=== PATIENT | male | born 1960 | race Caucasian/White ===

== ENCOUNTER 2021-04-15 04:12 | Inpatient (IN) | payer OTHER ==
[~2021-04-15] VITALS: Ht 180.3 cm; Wt 77.0 kg
[2021-04-15] MEDS ORDERED: FLOMAX0.4 MG PO (04:32)
[2021-04-15] MEDS ORDERED: CHANTIX1 MG PO (04:32)
[2021-04-15] MEDS ORDERED: PRINIVIL20 MG PO (04:33)
[2021-04-15] MEDS ORDERED: PLAVIX75 MG PO (04:33)
[2021-04-15] MEDS ORDERED: LIPITOR40 MG (04:34)
[2021-04-15] MEDS ORDERED: LIPITOR40 MG PO (04:34)
[2021-04-15] MEDS ORDERED: ANDRODERM1 EAC3 TD (04:35)
[2021-04-15] MEDS ORDERED: ADULT ASPIRIN R81 MG PO (08:55)
--- NOTE | 2021-04-15 09:25 | NUR ---
PATIENT ADMITTED TO ROOM [address]VAREZ. PATIENT POTENTIALLY GOING TO SURGERY BUT WILL GET IVF AND IV ABX FOR NOW. DR. ALVAREZ IN TO SEE PATIENT, AND MD STATES PATIENT CAN HAVE CLEAR LIQUIDS. PT GIVEN WATER. PT IS VERY PAINFUL BUT STATES THE DILAUDID IS HELPING. URINAL GIVEN TO PATIENT AND ORIENTED TO ROOM. PT ASKED TO USE CALL LIGHT. SCDs ON. PT STATES HE IS TIRED AND WANTING TO REST. REPORT GIVEN TO CEE ARIAS WHO IS CARING FOR PATIENT.
--- NOTE | 2021-04-15 10:21 | NUR ---
Dilaudid 0.5mg IVP admin for reports of 8/10 right lower quadrant pain.
[2021-04-15] MEDS ORDERED: TESTOSTERO200 MG/1 M IM (11:51)
--- NOTE | 2021-04-15 12:47 | NUR ---
MED REC COMPLETE
--- NOTE | 2021-04-15 13:00 | NUR ---
Admin dilaudid 0.5mg ivp for reports of 8/10 abdominal pain.
--- NOTE | 2021-04-15 13:12 | NUR ---
Called Dr. Blanc, obtained order for nicotine patch 21mg and to start a clear liquid diet as tolerated.
--- NOTE | 2021-04-15 13:28 | NUR ---
Pt was in bed, stated it only hurt when he moved or breathed or laughed. Unfortunately, pt appears to be in good spirits, and chuckled several times during our conversation, after when he winced and touched his side. He indicated significant pain but was confident of goood outcome. His only regret was that he had eaten a light dinner last night and so was very hungry. We prayed together, and I exited the room.
--- NOTE | 2021-04-15 15:15 | NUR ---
Toradol 30mg IVP admin for reports of 810 ongoing abdominal pain.
--- NOTE | 2021-04-15 17:17 | NUR ---
Dilaudid 0.5mg IVP admin for 8/10 abdominal pain.
--- NOTE | 2021-04-15 17:44 | NUR ---
SPOKE WITH PATIENT IN ROOM. PATIENT LIVES IN [place] WITH Rohit VARELA. SHE CAN PROVIDE TRANSPORT AT DISCHARGE. HE USES NO DME. HE DENIES FINANCIAL CONCERNS FOR MEDS/FOOD/UTILITIES. HE IS SEMI-RETIRED. DRIVES. HAS PCP MEGAN MILES AT [facility]. HE KNOWS OF NO BARRIERS TO RETURNING HOME AT DISCHARGE. WILL FOLLOW NEEDED.
--- NOTE | 2021-04-15 18:52 | NUR ---
Patient reports he cannot take morphine as it makes him itch badly. Spoke with Dr. Blanc regarding this. New order obtained for dilaudid 2-4mg po q3hrs and to continue current IVP dilaudid order for 0.4-0.6mg q2hr. Instructed by Dr. Blanc to use po dilaudid first as tolerated before using it in IV form. Orders updated. Morphine discontinued at this time.
--- NOTE | 2021-04-15 19:38 | NUR ---
Dilaudid 2mg po admin for reports 7/10 abdominal pain.
--- NOTE | 2021-04-15 19:46 | NUR ---
BEDSIDE REPORT RECEIVED FROM CEE ARIAS. pt RESTING IN BED AWAKE WATCHING TV. COMPLAINS OF 5/10 ABDOMINAL PAIN. CEE ARIAS MEDICATING PATIENT AT THIS TIME. CALL LIGHT IN REACH. IVF INFUSING WNL.
--- NOTE | 2021-04-15 21:16 | NUR ---
pt SLEEPING, AWAKENS TO VOICE WHEN RN ENTERS ROOM. RATES PAIN 5-6/10 IN ABDOMEN. PO DILAUDID TITRATED TO MAX DOSE. BOWEL TONES ACTIVE X 4, ABD SOFT, TENDER RUQ WITH PALPATION. pt GUARDED. IV SITE FLUSHED WNL, IV ANTIBIOTIC INFUSING ORDERED. ASSESSMENT COMPLETE. pt PROVIDED WITH CLEAR ENSURE DRINK. NO ADDITIONAL REQUESTS. VSS. CALL LIGHT IN REACH.
--- NOTE | 2021-04-15 22:32 | NUR ---
CALL LIGHT ANSWERED. URINAL PROVIDED pt DROPPED IT NEXT TO BED. NO ADDITIONAL NEEDS. IVF INFUSING WNL.
--- NOTE | 2021-04-16 02:10 | NUR ---
CALL LIGHT ANSWERED. VSS. pt COMPLAINS OF 9/10 RIGHT ABDOMINAL PAIN. ABD TENDER TO PALPATION, SOFT, BOWEL TONES ACTIVE X 4. PRN PAIN MEDICATION ADMINISTERED. ASSESSMENT COMPLETE. IV ANTIBIOTIC INFUSING WNL. COFFEE AND ICE WATER PROVIDED. pt AMBULATED 3 LAPS IN HALLWAY INDEPENDENTLY. BACK IN BED, CALL LIGHT IN REACH.
--- NOTE | 2021-04-16 05:05 | NUR ---
CALL LIGHT ANSWERED. PRN PAIN MEDICATION ADMINISTERED FOR 6-03/23 REPORTED ABDOMINAL PAIN "IT'S NOT BAD IF I'M JUST SITTING HERE". pt AWAKE WATCHING NEWS. CLEAR ENSURE AND JELLO PROVIDED. NEW BAG IVF INFUSING WNL. VSS. CALL LIGHT IN REACH.
--- NOTE | 2021-04-16 07:11 | EKG ---
[facility] [address] [facility] [place], [place] [address] Signed Normal sinus rhythm Possible Anterior infarct , age undetermined Abnormal ECG No previous ECGs available Confirmed by WILBER TRAVIS MD ([id number]) on 04/16/2021 7:11:12 AM Electronically Signed By: WILBER TRAVIS MD 04/16/21710 PATIENT NAME: GLENN SAVAGE Electrocardiogram DATE OF : 60 PHYSICIAN: WILBER TRAVIS MD REPORT #: [id number] REPORT IS CONFIDENTIAL AND NOT TO BE RELEASED WITHOUT AUTHORIZATION
--- NOTE | 2021-04-16 07:24 | NUR ---
PT AWAKE AND INTERACTIVE AT TIME OF SHIFT EXCHANGE, RESTING IN BED. STATES HE IS STARTING TO GET PAINFUL AGAIN, ANTICIPATES MED WHEN PRN IS AVAILABLE.
--- NOTE | 2021-04-16 08:17 | NUR ---
PT AWAKE IN ROOM. PT INDEPENDENT IN ROOM, REFUSES WARM CLOTH AND BREAKFAST TRAY. WHITE BOARD UPDATED. CALL LIGHT WITHIN REACH. NO FURTHER NEEDS AT THIS TIME.
--- NOTE | 2021-04-16 09:33 | NUR ---
PT CONTINUES RESTING IN BED. REFUSES OFFERS OF CLEAR LIQUIDS C/O HUNGER. PT IS UPBEAT AND CHEERFUL BUT STATES BEING COOPED UP AND UNABLE TO EAT IS CAUSING HIM STRESS. PUZZLES AND DISTRACTIONS OFFERED.
--- NOTE | 2021-04-16 09:45 | NUR ---
THIS RN TO ROOM TO CHECK ON PT AND TAKE VITALS SIGNS. VITAL SIGNS STABLE. I/O'S RECORDED, PT VOIDING QUANTITY SUFFICIENT. PT REPORTS 5/10 PAIN WHICH WORSENS WITH COUGH UP TO 8/10. PT REPORTS HE HAS RECENTLY TAKEN PAIN MEDICATION. PT REPORTS FEELING INPATIENT WITH PLAN OF CARE. PT STATES HE IS PLANNING TO LEAVE IN 2 HOURS IF HE DOES NOT GET TO EAT. EDUCATION DONE WITH PT. PT VERBALIZES UNDERSTANDING OF PROS AND CONS TO PLAN OF CARE. PT DENIES ADDITIONAL REQUESTS OR COMPLAINTS. CALL LIGHT WITHIN REACH.
--- NOTE | 2021-04-16 11:15 | NUR ---
Spoke with Kip. He is upset and stating he wants his meds and he wants to eat. He states he hasn't eaten in [address] Blanc is in surgery and I will let the dry charge process attendant know. He states there is no need and then apologizes and states he is cranky. He also states the weigh and charge worker also knows he wants med and food. Denies other needs and plans on dc to home when cleared medically.
--- NOTE | 2021-04-16 12:05 | NUR ---
PT CONTINUES TO BE PAINFUL IN BETWEEN DILAUDID. HE AGREES THE PAIN MED IS EFFECTIVE, "IT JUST DOESN'T LAST LONG ENOUGH"
--- NOTE | 2021-04-16 15:30 | NUR ---
PT UP TO SHOWER AGREES HE FEELS MUCH BETTER WATCHING TV DOING SOMETHING ON HIS PHONE. DR ALVAREZ IN EARLIER IN THE DAY SPEAKS TO HIM ABOUT POSSIBLE DIAGNOSIS AND PLAN MOVING FORWARD. ALL QUESTIONS ANSWERED. DIVERTIC PAMPLET PROVIDED LATER DISCUSSION CONTINUED WITH A FEW Q&A PT VERBALIZES UNDERSTANDING
--- NOTE | 2021-04-16 16:34 | NUR ---
PT INDEPENDENT WITH SHOWER. NOW UP IN ROOM. CALL LIGHT WITHIN REACH. LINEN CHANGED. NO FURTHER NEEDS AT THIS TIME.
--- NOTE | 2021-04-16 19:35 | NUR ---
RECEIVED REPORT FROM DAY SHIFT RN. PATIENT IS RESTING IN BED WATCHING TV. PATIENT DENIES ANY FURTHER NEEDS. CALL LIGHT IN REACH.
--- NOTE | 2021-04-16 20:35 | NUR ---
PATIENT ASSESMENT COMPLETED. PATIENTS VITALS TAKEN AND RECORDED. INTAKE AND OUPUT RECORDED. IV INFUSING PER ORDER. PATIENTS EVENING MEDICATIONS GIVEN PER ORDER. PATIENT RATES PAIN AT A 3/10. PRN PAIN MEDICATION GIVEN PER ORDER. PATIENTS RLQ IS TENDER TO THE TOUCH. PATIENT DENIES ANY DISTENTION. PATIENT DENIES ANY NAUSEA. SCDS IN USE. PATIENT DENIES ANY FURTHER NEEDS. AT THIS TIME. CALL LIGHT IN REACH.
--- NOTE | 2021-04-16 23:49 | NUR ---
PATIENT GIVEN PRN PAIN MEDICATION FOR 3/10 PAIN IN HIS RLQ. PATIENT DENIES ANY FURTHER NEEDS. CALL LIGHT IN REACH.
--- NOTE | 2021-04-17 02:56 | NUR ---
PATIENTS SCHEDULED MEDICATION GIVEN PER ORDER. PATIENT RATES PAIN AT A 4/10. PATIENT GIVEN PRN PAIN MEDICATION PER ORDER. PATIENT DENIES ANY FURTHER NEEDS. CALL LIGHT IN REACH. PATIENTS IV PUMP IS BEEPING. PATIENTS IV FLUSHED AND IS PATENT. NO SIGNS OF INFILTRATION, NO REDNESS, AND NO PAIN NOTED WHEN IV FLUSHED.
--- NOTE | 2021-04-17 05:52 | NUR ---
VITALS TAKEN AND RECORDED. INTAKE AND OUPUT RECORDED. PATIENT REPORTS 6/10 PAIN IN HIS RLQ. PATIENT GIVEN PRN PAIN MEDICATION PER ORDER. PATIENT REPORTS PASSING GAS. PATIENT HAS ACTIVE BOWEL TONES. PATIENT DENIES ANY FURTHER NEEDS. CALL LIGHT IN REACH. LAB IN ROOM.
--- NOTE | 2021-04-17 07:02 | NUR ---
Report from Blanco Rodas RN.
--- NOTE | 2021-04-17 07:23 | NUR ---
Shift report recieved from CEE Kincaid, pt resting in bed safely w/ call light in reach. RR even and unlabored.
--- NOTE | 2021-04-17 07:43 | NUR ---
Ambulating in hallway at this time.
--- NOTE | 2021-04-17 07:45 | NUR ---
PT UP AND REPORTED THEY WERE GOING TO WALK AROUND. PT REFUSED WASHCLOTH AND STATED THEY WILL WASH FACE IN BATHROOM. WHITEBOARD UPDATED. PT AMBULATED 2 LAPS AROUND THE NURSES STATION. NO FURTHER NEEDS.
--- NOTE | 2021-04-17 08:00 | NUR ---
PT UP IN HALLWAY AMBULATING INDEPENDENTLY.
--- NOTE | 2021-04-17 08:30 | NUR ---
PT SITTING UP IN BED USING IS. PT C/O PAIN IN RLQ, PRN PAIN MEDS GIVEN PER PT REQUEST/PROVIDER ORDER. MORNING ASSESMENT COMPLETED AND SCHEDULED MEDS GIVEN PER PROVIDER ORDER. PT DENIES ANY OTHER NEEDS AT THIS TIME.
--- NOTE | 2021-04-17 10:20 | NUR ---
PROVIDER IN THE ROOM TO ASSES PT. PT SITTING UP IN BED SAFELY W/ CALL LIGHT IN ROOM. PT UPDATED ON PLAN OF CARE.
--- NOTE | 2021-04-17 11:30 | NUR ---
No change in plan for dc, possible discharge tomorrow per Dr. Blanc.
--- NOTE | 2021-04-17 11:41 | HP ---
[facility] [address], [place] [address] Signed ADMISSION DATE: 04/15/2021 REASON FOR ADMISSION: Probable right-sided inflammatory process of colon. HISTORY OF PRESENT ILLNESS: This 60-year-old white man lives in [place], though he gets most of his medical care in [place], [place]. His is not present, though she is present by phone during my evaluation. The patient presented to the emergency room at approximately 4:00 in the morning, complaining of progressive abdominal pain which was very severe on the right side. He had no real problems more than 24 hours ago, but his pain was maximal at approximately 11:00 p.m. and steadily worsening during ER evaluation. The patient has had some nausea and diarrhea and diaphoresis. He was markedly tender to examination by Dr. Fuentes, the emergency room physician. A CT scan was performed, which was anticipated to show appendicitis, but there was no evidence of appendicitis, but rather cecal wall thickening and pericolic fat stranding with an intramural fluid collection in the proximal ascending colon. There was associated mass effect in the lumen, but no colonic obstruction. Consideration was made. This may represent a diverticulitis problem on the right side. The appendix itself was normal. His past medical history does include a significant myocardial infarction in April of last year for which he underwent a single left coronary stent. He continues to take Plavix and aspirin on a daily basis. He does smoke one pack of cigarettes a day and he has for 30 years and he drinks beer nightly and just THC gummies. Since admission with IV fluids and parental pain medication, he has improved, though markedly uncomfortable on the right side of moving. REVIEW OF SYSTEMS: He denies any shortness of breath or chest pain. He has had no dysphagia. No dysuria. No hematemesis. No blood per rectum. PHYSICAL EXAMINATION: GENERAL: A bald-headed well-tanned white man with a pinto valadez. He does not look systemically toxic. Trachea is midline. CHEST: Clear. HEART: Regular without murmur. Electronically Signed By: RADHAMES ALVAREZ MD 04/17/21 1141 PATIENT NAME: GLENN SAVAGE HISTORY AND PHYSICAL DATE OF : 60 REPORT #: [id number] PHYSICIAN: RADHAMES ALVAREZ MD PCP: NO PRIMARY CARE PHYSICIAN REPORT IS CONFIDENTIAL AND NOT TO BE RELEASED WITHOUT AUTHORIZATION [facility] [address], [place] [address] Signed ABDOMEN: Nondistended. He does not have significant tenderness on the left side, but market tenderness on the right side. EXTREMITIES: Show no clubbing, cyanosis, or edema. LABORATORY STUDIES: Show a white count of 24.5, hematocrit 33.7, platelets 458,000. Band forms 3%. Chem profile shows a potassium of 5.2, sodium 131, bicarb 24, creatinine of 1.02, glucose 116. Lactic acid was not obtained. Magnesium 1.9, calcium 9.2. Liver enzymes are normal. Troponin was less than 0.01. Albumin 4.2. Lipase not obtained. COVID serology was negative. Urinalysis essentially normal. His CT scan report is as previously described. Chest x-ray looks entirely normal. CT scan is reviewed, which shows no evidence of hepatic abnormality per se. Right kidney is normal as is the spleen. Left kidney is normal as well. Gallbladder appears to be contracted. I do not see radiopaque gallstones. The right colon and cecum have an amorphous appearance. It is thickened. I am uncertain that this represents an intramural abscess and think it unlikely actually, but we will review this with the radiologist. I do not see right-sided diverticula otherwise. ASSESSMENT: The patient has an inflammatory process of the right colon, specifically the cecum and said to have normal appendix proper. He has been admitted, given intravenous fluids, IV antibiotic cefoxitin, and will have bowel rest for now. I reviewed the CT scan more fully with the radiologist. As regards to his prior myocardial infarction, he has no evidence of ischemic disease clinically nor chemically at this time. He will remain on his Plavix and aspirin for the time being. MD ALEJANDRA Hernandez/MODL /[id number] cc: Dr. Fuentes Copies: Electronically Signed By: RADHAMES ALVAREZ MD 04/17/21 1141 PATIENT NAME: GLENN SAVAGE HISTORY AND PHYSICAL DATE OF : 60 REPORT #: [id number] PHYSICIAN: RADHAMES ALVAREZ MD PCP: NO PRIMARY CARE PHYSICIAN REPORT IS CONFIDENTIAL AND NOT TO BE RELEASED WITHOUT AUTHORIZATION [address] [address] Signed ~ Electronically Signed By: RADHAMES ALVAREZ MD 04/17/21 1141 PATIENT NAME: AKIRAHIRENGLENN HISTORY AND PHYSICAL DATE OF : 60 REPORT #: [id number] PHYSICIAN: RADHAMES ALVAREZ MD PCP: NO PRIMARY CARE PHYSICIAN REPORT IS CONFIDENTIAL AND NOT TO BE RELEASED WITHOUT AUTHORIZATION
--- NOTE | 2021-04-17 12:03 | NUR ---
PATIENT REQUESTED TO SPEAK TO RD ABOUT WHAT TO EAT ON A LOW-FIBER DIET. SPOKE TO PATIENT THIS MORNING. PATIENT HAS RECEIVED INFORMATION ON DIVERTICULITIS. RD EXPLAINED WHY LOW-FIBER IS NEEDED FOR GUT HEALING FOR A FEW WEEKS. THEN, FIBER CAN BE INCREASED. WE DISCUSSED RECOMMENDED FOOD ITEMS/ NOT RECOMMENDED FOOD ITEMS AND PROVIDED AN EDUCATIONAL HANDOUT. ALSO PROVIDED SAMPLE MENUS. ALL QUESTIONS WERE ANSWERED BY THIS RD. PROVIDED MY NAME AND OFFICE NUMBER IN CASE FURTHER QUESTIONS ARISE.
--- NOTE | 2021-04-17 12:13 | NUR ---
PT SITTING UP IN BED EATING LUNCH. PT C/O 6/10 PAIN IN RLQ, PRN PAIN MEDS GIVEN PER PT REQUEST/PROVIDER ORDER. PT DENIES ANY OTHER NEEDS AT THIS TIME.
--- NOTE | 2021-04-17 14:00 | NUR ---
PT SITTING UP IN BED W/ CALL LIGHT IN REACH, WATCHING TV. PT STATES PAIN IS STARTING TO COME BACK AND WOULD LIKE PRN PAIN MEDS WHEN AVAILABLE.
--- NOTE | 2021-04-17 15:26 | NUR ---
PT C/O PAIN IN RLQ, PRN PAIN MEDS GIVEN PER PT REQUEST/PROVIDER ORDER.
--- NOTE | 2021-04-17 16:31 | NUR ---
PT SITTING UP IN BED WATCHING TV, W/ CALL LIGHT IN REACH. PT DENIES ANY NEEDS AT THIS TIME.
--- NOTE | 2021-04-17 18:22 | NUR ---
PT IND IN ROOM AND PAIN WELL CONTROLED W/ ORAL PAIN MEDS. PT NUTRITIONAL AND FLUID INTAKE WELL URINE OUTPUT SUFICIENT FOR SHIFT. PT ADVANCED TO LOW FIBER DIET TOLERATING WELL. NEW IV STARTED IN L AC AND OLD IV DC'd PER PT REQUEST. PT A+O x3 USES CALL LIGHT APPROPRIATELY.
--- NOTE | 2021-04-17 18:27 | NUR ---
PT AWAKE IN BED AND WATCHING TV. PT IS FRUSTRATED BY FREQUENCY OF VITALS. PT IS INDEPENDENT IN THE ROOM. URINAL EMPTIED. CALL LIGHT WITHIN REACH. NO FURTHER NEEDS AT THIS TIME.
--- NOTE | 2021-04-17 19:46 | NUR ---
RECEIVED REPORT FROM DAY SHIFT RN. PATIENT ASKED STAFF TO LEAVE HIS ROOM. STATING "I WILL CALL WHEN I WANT YOU". CALL LIGHT IN REACH ROOM VACATED PER PATIENT REQUEST.
--- NOTE | 2021-04-17 21:07 | NUR ---
PATIENT IS REFUSING CARE AT THIS TIME. CALL LIGHT IN REACH.
--- NOTE | 2021-04-17 22:11 | NUR ---
PATIENT ASSESMENT COMPLETED. PATIENT RATES PAIN IN HIS RLQ AT A 6/10. PATIENT GIVEN PRN PAIN MEDICATION PER ORDER. VITALS TAKEN AND RECORDED. INTAKE AND OUPUT RECORDED. PATIENT DENIES ANY NAUSEA. PATIENT DENIES ANY FURTHER NEEDS. SL AND IV FLUSHES WELL. CALL LIGHT IN REACH.
--- NOTE | 2021-04-17 23:34 | NUR ---
PATIENT CALLED AND REQUESTED PAIN MEDICATION FOR 5/10 IN HIS RLQ. PRN PAIN MEDICATION GIVEN PER ORDER. PATIENT DENIES ANY FURTHER NEEDS. CALL LIGHT IN REACH.
--- NOTE | 2021-04-18 01:15 | NUR ---
PATIENT CALLED AND REPORTED 4/10 ABD PAIN. PATIENT GIVEN PRN ABD PAIN PER ORDER. PATIENT DENIES ANY FURTHER NEEDS. CALL LIGHT IN REACH.
--- NOTE | 2021-04-18 03:52 | NUR ---
PATIENT IS RESTING IN BED WITH EYES CLOSED, RR 17. CALL LIGHT IN REACH.
--- NOTE | 2021-04-18 06:13 | NUR ---
PATIENTS VITALS TAKEN AND RECORDED. INTAKE AND OUPUT RECORDED. PATIENTS MORNING MEDICATIONS GIVEN PER ORDER. PATIENT EXPRESSED FRUSTRATION WITH SCHEDULED MEDICATION. EDUCATED PATIENT THAT HIS MEDICATION AT HOME CAN BE DIFFERENT THAT HERE. PATIENT CONTINUES TO BE FRUSTRATED. PATIENT RATES PAIN AT A 4/10. PRN PAIN MEDICATION GIVEN PER ORDER. PATIENT DENIES ANY FURTHER NEEDS. CALL LIGHT IN REACH.
--- NOTE | 2021-04-18 07:41 | NUR ---
Shift report received from CEE Kincaid. Pt sitting up in bed safely w/ call light in reach. Pt c/o nausea, PRN nausea meds given per pt request/provider order.
--- NOTE | 2021-04-18 09:05 | NUR ---
PT RESTING IN BED W/ CALL LIGHT IN REACH. PT C/O RLQ PAIN, PRN PAIN MEDS GIVEN PER PT REQUEST/PROVIDER ORDER. MORNING ASSESMENT COMPLETED AND SCHEDULED MEDS GIVEN PER PROVIDER ORDER.
--- NOTE | 2021-04-18 09:30 | NUR ---
patient sitting up in the bed, says he will shower later today. call light within reach. no further needs at this time.
--- NOTE | 2021-04-18 10:23 | NUR ---
PT REQUESTED TO SHOWER BUT WOULD LIKE TO WAIT UNTIL NOON TO DO SO.
--- NOTE | 2021-04-18 12:15 | NUR ---
PT C/O PAIN, PRN PAIN MEDS GIVEN PER PT REQUEST/PROVIDER ORDER. PT ASK TO HOLD OFF ON TAKING A SHOWER HE WOULD LIKE TO TAKE A NAP INSTEAD. PT TO CALL WHEN READY FOR SHOWER
--- NOTE | 2021-04-18 12:30 | NUR ---
Spoke with pt and he is planning on dc today. Wanting to go now, awaiting visit from from Dr. Blanc for dc.
[2021-04-18] MEDS ORDERED: CIPROFLOXACIN500 MG PO (13:58)
[2021-04-18] MEDS ORDERED: METRONIDAZOLE250 MG PO (13:58)
--- NOTE | 2021-04-18 14:07 | NUR ---
PT'S IV REMOVED AND PT SHOWERING, PROVIDER PUT IN DISCHARGE ORDERS
--- NOTE | 2021-04-22 08:22 | DS ---
[facility] [address], [place] [address] Signed ADMISSION DATE: 04/15/2021 DISCHARGE DATE: 04/18/2021 REASON FOR ADMISSION: Presumed cecal diverticulitis. HISTORY OF PRESENT ILLNESS: This 60-year-old white man lives in [place], [place], though he gets most of his care in [place], [place]. He presented to the emergency room at approximately 4 a.m. complaining of progressive lower abdominal pain, which was quite severe in the right lower abdomen. He had no significant pain at all 24 hours prior to admission, but this pain was maximal at approximately 11 p.m. and steadily worsening until his presentation to emergency room. He was markedly tender to examination by Dr. Fuentes, emergency room physician. A CT scan was performed, anticipating to show appendicitis, but there was no evidence of appendicitis, but rather a cecal wall thickening and pericolic fat stranding with intramural fluid collection possibly of the ascending colon and a mass effect in the lumen. Consideration was made for possible "mural abscess." PAST MEDICAL HISTORY: Does include history of myocardial infarction in April of 2020 with single left coronary artery stent. He continues on Plavix and aspirin on a daily basis. He does smoke one pack of cigarettes daily and has for 30 years and drinks beer nightly. He is admitted for further evaluation and care. PERTINENT PHYSICAL EXAMINATION: GENERAL: Showed a bald-headed, well tanned white male with a pinto valadez. He did not look systemically toxic. HEENT: Trachea is midline. CHEST: Clear. HEART: Regular without murmur. ABDOMEN: Showed marked tenderness in the right lower quadrant. LABORATORY STUDIES: Showed a white count 24.5, hematocrit 33.7, platelets 458,000. Band forms 3%. Chem profile showed a potassium of 5.2, sodium 131, bicarb 24, creatinine 1.02. Liver enzymes are normal. Troponin was negative for sign of ischemia. HOSPITAL COURSE: He was admitted with the uncertainty of his diagnosis, but best fit considered to be Electronically Signed By: RADHAMES ALVAREZ MD 04/22/21 0822 PATIENT NAME: GLENN SAVAGE DISCHARGE SUMMARY DATE OF : 60 REPORT #: [id number] PHYSICIAN: RADHAMES ALVAREZ MD PCP: NO PRIMARY CARE PHYSICIAN REPORT IS CONFIDENTIAL AND NOT TO BE RELEASED WITHOUT AUTHORIZATION [facility] [address], [place] [address] Signed cecal diverticulitis. He was maintained with antibiotic cefoxitin and made n.p.o. except for clear liquids as tolerated for comfort. Review of his situation showed prior Cologuard test in [place] (uncertain if Cologuard or simple fecal occult blood test), which was said to be normal. He had no family history of colon cancer. He had no prior history of sigmoid diverticulitis or other issues of the same. He did appear improved, though he did have market tenderness persisting. A CEA level was obtained, but is even at time of admission not returned. The pain appeared to resolve and he was advanced in his diet from clear liquid to a full liquid and ultimately to a low-fiber diet. He was transitioned from IV antibiotics to oral antibiotics, Cipro and Flagyl. By the day of discharge, he is tolerating a regular diet, has no pain or tenderness in the right lower quadrant, and is doing well. It is anticipated that he will undergo formal colonoscopy four weeks or so from the date of his problem to ascertain there is no sign of neoplasm. I personally reviewed his CT scan with Dr. Wheeler, radiologist and there was no true sign of intramural abscess, but certainly "crowding" of the cecum and the possibility of neoplasm is not likely, but not impossible either. DISCHARGE MEDICATIONS: Will include Cipro 500 mg p.o. b.i.d., #14 and Flagyl 250 p.o. t.i.d., #15. He will resume his usual medications includin. Chantix 1 mg tablet daily. 2. Flomax 0.8 mg daily. 3. Lisinopril 20 mg p.o. daily. 4. Atorvastatin 40 mg p.o. at bedtime. 5. Aspirin 81 mg p.o. daily. 6. Testosterone cypionate 200 mg intramuscular every two weeks. FOLLOWUP PLAN: He will return to see me in approximately a month; at which point, we will make plans for colonoscopy. He will maintain a low-fiber diet in the meantime. DISCHARGE DIAGNOSES: 1. Severe right lower quadrant pain and tenderness. CT scan findings suggestive of cecal diverticulitis. 2. History of myocardial infarction and left anterior descending coronary stenting in April 2020. 3. Hypogonadism. Electronically Signed By: RADHAMES ALVAREZ MD 04/22/21821 PATIENT NAME: GLENN SAVAGE DISCHARGE SUMMARY DATE OF : 60 REPORT #: [id number] PHYSICIAN: RADHAMES ALVAREZ MD PCP: NO PRIMARY CARE PHYSICIAN REPORT IS CONFIDENTIAL AND NOT TO BE RELEASED WITHOUT AUTHORIZATION [address] [address] Signed 4. Hypertension. 5. Smoking. MD ALEJANDRA Hernandez/MODL /[id number] cc: Dr. Gina Colon Copies: ~ Electronically Signed By: RADHAMES ALVAREZ MD 04/22/21821 PATIENT NAME: AKIRAROSMERYGLENN MIKE DISCHARGE SUMMARY DATE OF : 60 REPORT #: [id number] PHYSICIAN: RADHAMES ALVAREZ MD PCP: NO PRIMARY CARE PHYSICIAN REPORT IS CONFIDENTIAL AND NOT TO BE RELEASED WITHOUT AUTHORIZATION
== END 2021-04-18 15:05 | disposition home or self-care (01) | DRG 391 ==
LOC: ED 04:12 → MS 07:35
PROVIDERS: ADMIT Surgery; ATTEND Surgery
DX: K57.32 Diverticulitis of large intestine without perforation or abscess without bleeding (principal); K65.9 Peritonitis, unspecified; I25.2 Old myocardial infarction; Z95.5 Presence of coronary angioplasty implant and graft; I10 Essential (primary) hypertension; Z79.02 Long term (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 of 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; Z79.82 Long term (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 of aspirin; I25.10 Atherosclerotic heart disease of native coronary artery without angina pectoris; F17.210 Nicotine dependence, cigarettes, uncomplicated; Z79.899 Other long term (current) drug therapy; K37 Unspecified appendicitis; Z88.5 Allergy status to narcotic agent
CPT/HCPCS: 71045; 74177; 80048; 80053; 81001; 83605; 83690; 83735; 84484; 85007; 85025; 93005; 93010; 96375; 96376; 99285-25; C9803; J0694; J1170; J1644; J1885; J2405; J7121; Q9967; U0003

== ENCOUNTER 2021-04-26 00:48 | Emergency (ER) | payer OTHER ==
[~2021-04-26] VITALS: Ht 180.3 cm; Wt 79.4 kg
[~2021-04-26 00:48] MED LIST: ADULT ASPIRIN R81 MG PO; ANDRODERM1 EAC3 TD; CHANTIX1 MG PO; CIPROFLOXACIN500 MG PO; FLOMAX0.4 MG PO; LIPITOR40 MG; LIPITOR40 MG PO; METRONIDAZOLE250 MG PO; PLAVIX75 MG PO; PRINIVIL20 MG PO; TESTOSTERO200 MG/1 M IM
--- OUTSIDE RECORDS SUMMARY | 2021-04-26 00:50 | XMS ---
PreManage Notification: GLENN SAVAGE Security Glassie Events No recent Security Events currently on file CRITERIA MET - [facility] - 2 Visits in 30 Days - [facility] CARE PROVIDERS AMBROSE BatesMORRIS [facility] Current PHONE: [phone] Lashanda has no Care Guidelines for this patient. E.D. VISIT COUNT (12 MO.) 1 [facility] Shira [address] [place] [address] TOTAL 3 NOTE: Visits indicate total known visits. ED/UCC VISIT TRACKING (12 MO.) 04/26/2021 00:48 MERE Ramirez TYPE: Emergency COMPLAINT: - BLOOD IN STOOL 04/15/2021 04:12 MERE Miranda [place] TYPE: Emergency COMPLAINT: - ABD UMU,CHEST TIGHTNESS 05/02/2020 21:59 [facility] Janie [place] TYPE: Emergency DIAGNOSES: - Acute respiratory failure with hypercapnia - Acute respiratory failure with hypoxia - Cardiac Arrest - Cardiac arrest, cause unspecified INPATIENT VISIT TRACKING (12 MO.) 04/15/2021 07:35 MERE Miranda [place] TYPE: Medical Surgical COMPLAINT: - INTRALUMINAL ABSCESS DIAGNOSES: - Presence of coronary angioplasty implant and graft - buttermaker helper (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 of 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 - Nicotine dependence, cigarettes, uncomplicated - Right lower quadrant pain - Allergy status to narcotic agent - USP (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 of aspirin - Other detention (current) drug therapy - Atherosclerotic heart disease of crow coronary artery without angina pectoris - Diverticulitis of large intestine without perforation or abscess without bleeding - Essential (primary) hypertension - Old myocardial infarction - Unspecified appendicitis 05/02/2020 21:59 [facility] Shira [place] TYPE: Surgical Services DIAGNOSES: - Other symptoms and signs involving the nervous system - Respiratory arrest - Cardiac arrest, cause unspecified - Atherosclerotic heart disease of crow coronary artery without angina pectoris - Syncope and collapse - Acute respiratory failure with hypercapnia - Acute respiratory failure with hypoxia - Other symptoms and signs involving cognitive functions and awareness - Multiple fractures of ribs, right side, subsequent encounter for fracture with routine healing - Respiratory failure, unspecified, unspecified whether with hypoxia or hypercapnia [email or web address]
== END 2021-04-26 02:38 | disposition home or self-care (01) ==
LOC: ED 00:48
DX: K92.2 Gastrointestinal hemorrhage, unspecified (principal); Z20.822 Contact with and (suspected) exposure to COVID-19; I25.2 Old myocardial infarction; F17.200 Nicotine dependence, unspecified, uncomplicated; Z88.5 Allergy status to narcotic agent; Z79.899 Other long term (current) drug therapy; Z79.82 Long term (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 of aspirin
CPT/HCPCS: 80053; 85025; 85610; 85730; 86850; 86900; 86901; 96374; 99284-25; C9113; C9803; U0003

== ENCOUNTER 2021-04-26 10:10 | Observation (INO) | payer OTHER ==
[~2021-04-26] VITALS: Ht 180.3 cm; Wt 79.4 kg
--- OUTSIDE RECORDS SUMMARY | 2021-04-26 10:14 | XMS ---
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 - 2 Visits in 30 Days CARE PROVIDERS AMBROSE BatesMORRIS [facility] Current PHONE: [phone] Lashanda has no Care Guidelines for this patient. E[facility] MO[facility] TOTAL 4 NOTE: Visits indicate total known visits. ED/UCC VISIT TRACKING (12 MO.) 04/26/2021 10:10 MERE Miranda [place] TYPE: Emergency COMPLAINT: - ABD PAIN 04/26/2021 00:48 MERE Miranda [place] TYPE: Emergency COMPLAINT: - BLOOD IN STOOL 04/15/2021 04:12 MERE Miranda [place] TYPE: Emergency COMPLAINT: - ABD UMU,CHEST TIGHTNESS [facility]2020 [facility] DIAGNOSES: - Acute respiratory failure with hypercapnia - Acute respiratory failure with hypoxia - Cardiac Arrest - Cardiac arrest, cause unspecified INPATIENT VISIT TRACKING (12 MO.) 04/15/2021 07:35 MERE Ramirez TYPE: Medical Surgical COMPLAINT: - INTRALUMINAL ABSCESS DIAGNOSES: - Presence of coronary angioplasty implant and graft - FDC (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 of 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 - Nicotine dependence, cigarettes, uncomplicated - Right lower quadrant pain - Allergy status to narcotic agent - moth exterminator (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 of aspirin - Other senior living (current) drug therapy - Atherosclerotic heart disease of [place] coronary artery without angina pectoris - Diverticulitis of large intestine without perforation or abscess without bleeding - Essential (primary) hypertension - Old myocardial infarction - Unspecified appendicitis [facility]02[facility]2020 21:[facility] [place] [facility] DIAGNOSES: - Other symptoms and signs involving the nervous system - Respiratory arrest - Cardiac arrest, cause unspecified - Atherosclerotic heart disease of [place] coronary artery without angina pectoris - Syncope and collapse - Acute respiratory failure with hypercapnia - Acute respiratory failure with hypoxia - Other symptoms and signs involving cognitive functions and awareness - Multiple fractures of ribs, right side, subsequent encounter for fracture with routine healing - Respiratory failure, unspecified, unspecified whether with hypoxia or hypercapnia [email or web address]
--- NOTE | 2021-04-26 12:56 | NUR ---
MED REC COMPLETE
--- NOTE | 2021-04-26 12:56 | NUR ---
MED REC COMPLETE
--- NOTE | 2021-04-26 14:00 | NUR ---
PT ADMITTED TO CCU ROOM 129 FOR GI BLEED. CAME TO ED WITH BLOOD IN STOOL AND DIZZINESS/SYNCOPAL EPISODE AT HOME EARLY THIS MORNING. WALKED HIMSELF INTO THE BATHROOM, STAND BY ASSIST, DID SAY HE WAS DIZZY WITH STANDING. HAD LARGE DARK RED GELATINOUS STOOL. ASSISTED BACK TO BED AND ASSESSMENT DONE. PT C/O NECK ACHE HE BELIEVES HE OBTAINED WHEN HE FELL AT HOME. TYLENOL GIVEN BY CONROY SUPERISOR. LR INFUSING AT 75ML/HR. HR 70'S. LIDOCAIN PATCH APPLIED TO NECK. PT ALERT AND ORIENTED, CALL LIGHT IN HAND, INSTRUCTED TO CALL WITH ANY NEEDS AND NOT TO GET UP ON HIS OWN.
--- NOTE | 2021-04-26 14:45 | NUR ---
DR ALVAREZ IN TO SEE PT, PLAN FOR COLONOSCOPY TOMORROW AND BOWEL PREP TONIGHT, PT INFORMED AND AWARE, QUESTIONS ANSWERED AND AGREES TO PLAN OF CARE.
--- NOTE | 2021-04-26 16:30 | NUR ---
PT HAS BEEN SITTING IN BED, SIPPING ON CLEAR LIQUIDS. BP'S HAVE BEEN TRENDING DOWNWARD, MANUAL DONE AND VERIFIED. BOTH ARMS TRIED WITH RIGHT SLIGHTLY GREATER THAN LEFT. LAST BP 83/58 LEFT ARM AND 95/64 LEFT ARM.
--- NOTE | 2021-04-26 17:07 | NUR ---
BP'S HAVE BEEN DROPPING, CALL TO UPDATE DR SUNG, ORDER GIVEN TO GIVE 1L LR BOLUS, BOLUS STARTED. PT AWAKE IN BED, DENIES NEEDS AT THIS TIME. EATING JELLO AND BROTH.
--- NOTE | 2021-04-26 17:15 | NUR ---
LR BOLUS IS INFUSING, BPS HAVE COME UP, LAST BP WAS 108/57. HR 70'S.
--- NOTE | 2021-04-26 17:35 | NUR ---
LAB DRAWN WITH NEW IV START. PT UP TO BSC FOR MOSTLY BROWN LIQUID STOOL. HAD DRANK ABOUT HALF OF THE TOTAL BOWEL PREP SO FAR. STATES NECK PAIN HAS GOTTEN A BIT BETTER.
--- NOTE | 2021-04-26 19:00 | NUR ---
BPS HAVE COME DOWN AGAIN, CALL TO UPDATE DR SUNG, ORDER GIVEN FOR 2 ADDITIONAL UNITS OF PRBC'S.
--- NOTE | 2021-04-26 19:30 | NUR ---
RECEIVED REPORT FROM CEE MARES. pt RESTING IN BED. ALERT AND ORIENTED. DISCUSSED PLAN OF CARE. pt REPORTED A HEADACHE "FROM MY FALL" ALONG WITH NECK AND BACK PAIN. DRINKING BOWEL PREP. PROVIDED ICE. CALL LIGHT WITHIN REACH. WHITEBOARD UPDATED.
--- NOTE | 2021-04-26 19:31 | NUR ---
CALL TO UPDATE DR ALVAREZ, ORDER GIVEN FOR ONE UNIT OF PLATELETS TO BE TRANSFUSED.
--- NOTE | 2021-04-26 19:37 | NUR ---
PT C/O NAUSEA, PRN ZOFRAN GIVEN.
--- NOTE | 2021-04-26 20:30 | NUR ---
UNIT 1 OF 2 IN TO GIVE BLOOD. pt RESTING IN BED. VERBALIZED UNDERSTANDING OF SIGNS AND SYMPTOMS OF TRANSFUSION REACTION. BLOOD VERIFIED WITH SECOND NURSE PER PROTOCOL. INFUSING PER PROTOCOL IN RIGHT AC IV ON PUMP. THIS RN REMAINED AT BEDSIDE FOR 15 MINUTES PER PROTOCOL. NO REACTION NOTED. ASSESSMENT DONE. pt REPORTED TWITCHING IN LEFT CALF, NO PAIN. PAIN IN NECK, BACK AND HEAD. ASSISTED TO REPOSITION. LUNGS CLEAR. CALL LIGHT WITHIN REACH.
--- NOTE | 2021-04-26 20:40 | NUR ---
DR SUNG ORDERED FLUIDS BE INCREASED FROM 75MLS/HR TO 125MLS/HR. RATE CHANGED ON PUMP.
--- NOTE | 2021-04-26 20:44 | NUR ---
IN TO GIVE MEDICATION (SEE MAR). pt RESTING ON LEFT SIDE. EYES CLOSED, BLOOD INFUSING PER ORDERS. IV SITE PATENT. CALL LIGHT WITHIN REACH.
--- NOTE | 2021-04-26 22:35 | NUR ---
UNIT 2 OF 2 FIRST UNIT INFUSION COMPLETED. pt WOKE TO VOICE. DENIES SIGNS AND SYMPTOMS OF TRANSFUSION REACTION. VERIFIED UNIT WITH SECOND RN. INFUSING PER PROTOCOL. THIS RN REMAINED AT BEDSIDE FOR 15 MINUTES PER PROTOCOL. pt CONTINUES TO SLEEP. WOKE FOR TEMPERATURE. NO SIGNS OR SYMPTOMS OF REACTION. IV PATENT. CALL LIGHT WITHIN REACH.
--- NOTE | 2021-04-27 00:57 | NUR ---
UNIT 2 INFUSION COMPLETED. NO SIGNS OR SYMPTOMS OF REACTION. pt REPORTED HAVING "SLEPT WELL" UP TO BSC AND BACK TO BED SBA. FINISHING BOWEL PREP. BM BROWN WITH CLEAR FLECKS BEFORE. ASSESSMENT DONE. NO CHANGES. pt SITTING IN BED DRINKING BOWEL PREP. CALL LIGHT WITHIN REACH.
--- NOTE | 2021-04-27 03:17 | NUR ---
PLATELETS READY FOR INFUSION. pt RESTING IN ROOM WITH EYES CLOSED, WOKE TO LOUD VOICE. PLATELETS VERIFIED WITH SECOND RN PER PROTOCOL. THIS RN REMAINED AT BEDSIDE FOR 15 MINUTES PER PROTOCOL. INFUSION STARTED PER PROTOCOL. pt UP TO BSC. VOID LIGHT YELLOW URINE. BM SAME JOVI COLON. pt HAS COMPLETED BOWEL PREP. NPO OF 0200. NO SIGNS OR SYMPTOMS OF INFUSION REACTION. RATE INCREASED PER PROTOCOL. CALL LIGHT WITHIN REACH. pt RESTING IN BED.
--- NOTE | 2021-04-27 04:07 | NUR ---
PLATELET INFUSION COMPLETED. pt RESTING WITH EYES CLOSED, RESPIRATIONS REGULAR AND UNLABORED. CALL LIGHT WITHIN REACH.
--- NOTE | 2021-04-27 05:29 | NUR ---
IN TO DO ASSESSMENT. pt AWAKE FROM LAB DRAW. REPORTED CONTINUED PAIN IN HEAD/NECK/BACK. OFFERED ICE, pt REFUSED AT THIS TIME. NO CHANGES IN ASSESSMENT. pt UP TO BSC. CALL LIGHT WITHIN REACH.
--- NOTE | 2021-04-27 06:05 | NUR ---
pt BACK TO BED. URINE LIGHT YELLOW. BM MOSTLY CLEAR, BROWN TINGED. CALL LIGHT WITHIN REACH.
--- NOTE | 2021-04-27 06:48 | NUR ---
NEW BAG OF FLUIDS HUNG. NO REQUESTS AT THIS TIME. pt FINISHED SPEAKING WITH SIGNIFICANT OTHER. CALL LIGHT WITHIN REACH.
--- NOTE | 2021-04-27 07:30 | NUR ---
REPORT RECIEVED. PATIENT UP TO COMMODE TO EXPELL LIGHT GREENISH LIQUID STOOL. DENIES DIZZINESS WITH MOVEMENT. BACK TO BE W/O INCEDENT. PATIENT C/O HEAD,FACE AND NECK PAIN. DENIES ABD PAIN. TALKED WITH PATIENT ABOUT POC FOR DAY, INDICATES UNDERSTANDING. IVF PATENT.
--- NOTE | 2021-04-27 08:25 | NUR ---
TYLENOL 1000 MG PO GIVEN FOR FACE,HEAD,NECK PAIN.
--- NOTE | 2021-04-27 09:00 | NUR ---
DR. ALVAREZ PHONE IN AND UPDATED ON PATIENT STATUS. PLAN FOR COLONOSCOPY [phone] THIS AM. PATIENT IS RESTFUL IN BED AT THIS TIME.
--- NOTE | 2021-04-27 10:30 | NUR ---
TO OR VIA STRETCHER FOR COLONOSCOPY.
--- NOTE | 2021-04-27 11:20 | NUR ---
RETURN TO CCU. PATIENT IS AWAKE AND ALERT. ASKING QUESTIONS ABOUT PROCEEDURE, DR. ALVAREZ TO TALK WITH PATIENT.
--- NOTE | 2021-04-27 11:27 | NUR ---
04/27/21 [address]: PT IS BROUGHT TO CCU FOLLOWING COLONOSCOPY. HE IS TRANSFERED TO CCU BED. HE IS AWAKE AND CONVERSATING WITH STAFF. REPORT GIVEN TO ALMA KIDD RN.
--- NOTE | 2021-04-27 11:45 | NUR ---
DR. ALVAREZ HERE TO TALK WITH PATIENT. PATIENT WILL BE TRANSFERRED TO MED-SURG TODAY.
--- NOTE | 2021-04-27 12:30 | NUR ---
SITTING UP IN BED FOR CLEAR LIQUID DIET. DENIES NAUSEA.
--- NOTE | 2021-04-27 12:45 | NUR ---
NORCO 2 5/325 MG PO GIVEN FOR HEADACHE.
--- NOTE | 2021-04-27 16:30 | NUR ---
REPORT TO MED-SURG.
--- NOTE | 2021-04-27 16:35 | NUR ---
TO MED-SURG VIA CHAIR.
--- NOTE | 2021-04-27 16:48 | NUR ---
REPORT RECEIVED FROM CCU RN AND PT. TRANSFERRED VIA CHAIR WITH BELONGINGS. PT. IS ALERT AND ORIENTED. VITALS STABLE. DISCUSSED SAFETY AND PAIN MANAGEMENT. LEFT RESTING IN BED WITH CALL LIGHT IN REACH.
--- NOTE | 2021-04-27 17:25 | NUR ---
ROUNDING ON PT. PT. IS EATING DINNER. DENIES NAUSEA AND PAIN. LEFT RESTING WITH CALL LIGHT IN REACH.
--- NOTE | 2021-04-27 19:32 | NUR ---
RECEIVED REPORT FROM IDA MIKE. PATIENT IS RESTING UPRIGHT IN STRETCHER. REPORTS THAT HE WOULD LIKE SOME MEDICATION FO HIS HEAD PAIN. PATIENT GIVEN NORCO BY IDA MIKE. PATIENT IS ASKING FOR MEDICATION TO HELP HIM URINATE HE STATES HE TAKES FLOMAX. DENIES OTHER NEEDS, CALL LIGHT IN REACH.
--- NOTE | 2021-04-27 19:53 | NUR ---
SPOKE TO DR TRAVIS ABOUT THIS PATIENT HE IS CONCERNED ABOUT GETTING HIS REGULAR MEDICATION ESPECIALLY HIS FLOMAX HE HAS BEEN HAVING SOME DIFFICULTY WITH URINATION.
--- NOTE | 2021-04-27 20:20 | NUR ---
IN ROOM TO COMPLETE PATIENT'S ASSESSMENT AND VITALS. PATIENT HAS REPORTED HEADACHE IMPROVING, DENIES OTHER NEEDS. CALL LIGHT IN REACH. PATIENT MEDICATED WITH NIGHTLY MEDS SEE EMAR
--- NOTE | 2021-04-27 21:50 | NUR ---
WENT TO CHECK ON PATIENT. HE IS ASLEEP ON HIS LEFT SIDE ON BED, RESPIRATIONS EVEN AND UNLABORED. CALL LIGHT IN REACH.
--- NOTE | 2021-04-27 21:54 | NUR ---
PATIENT AWAKW AND ALERT, LAYING ON BED WATCHING TV. CALL LIGHT IN REACH
--- NOTE | 2021-04-28 00:05 | NUR ---
PATIENT RESTING ON HIS RIGHT SIDE IN BED. CALL LIGHT IN REACH. RESPIRATIONS EVEN AND UNLABORED.
--- NOTE | 2021-04-28 02:05 | NUR ---
CHECKED ON PATIENT. HE IS ASLEEP LAYING ON HIS LEFT SIDE IN BED. PATIENT CAN BE HEARD SNORING. REPSIRATIONS EVEN AND UNLABORED. CALL LIGHT IN REACH.
--- NOTE | 2021-04-28 03:26 | NUR ---
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 ASKS FOR SOME MORE PAIN MED FOR HEADACHE, STATES 5/10 AFTER WAKING UP. ALSO REQUESTING COFFEE THIS PROVIDED. LR COMPLETED AND STARTED NEW BAG AT 75 ML.
--- NOTE | 2021-04-28 04:18 | NUR ---
patient awake, ambulating in room and into hallway to ask for more coffee states "i needed to stretch my legs" patient back to his bed and watching TV. denies any needs. call light in reach.
--- NOTE | 2021-04-28 05:28 | NUR ---
IN ROOOM TO CHECK ON PATIENT AND OBTAIN VITALS AND CONDUCT ASSESSMENT. PATIENT REPORTS HIS HEAD PAIN HAS IMPROVED "SOME" "BUT IT'S STILL THERE" PATIENT INFORMED HE WILL BE HAVING A LAB DRAW THIS MORNING. DENIES OTHER NEEDS. CALL LIGHT IN REACH.
--- NOTE | 2021-04-28 06:34 | NUR ---
PATIENT HAS HAD SOME REST TONIGHT, HAS BEEN ABLE TO GET UP AND AMBULATE WITHOUT ASSISTANCE TO VOID, HAS USED URNIAL MULTIPLE TIMES, RECEIVINIG LR AT 75 ML/HR, ALSO TAKING PO FLUIDS FINE. PATIENT IS REQUESTING SOME SOFT FOOD LIKE HE HAD FOR DINNER, REQUESTING EGGS AND PANCAKES. DENIES NAUSEA. HAS BEEN MEDICATED WITH NORCO FOR PAIN WHERE HE HIT HIS HEAD.
--- NOTE | 2021-04-28 08:15 | NUR ---
REPORT RECIEVED FROM NIGHT RN AND PT. CARE RESUMED. PT IS ALERT AND ORIENTED. STATES HE HAS BEEN AWAKE SINCE 3AM, WHICH IS TYPICAL FOR HIM. REPORTS FACIAL PAIN AROUND RT. EYE FROM HIS PREVIOUS FALL. ADMIN NORCO. HE DENIES VISION CHANGES. ON RA AND TELE IN PLACE. BOWEL TONES ACTIVE. LUNGS CLEAR THROUGHOUT. PT. DENIES BLOOD IN HIS STOOL. AMBULATING INDEPENDENTLY IN THE ROOM. LEFT RESTING IN BED WITH CALL LIGHT IN REACH.
--- NOTE | 2021-04-28 11:27 | OR ---
[facility] [address] [place], [place] [address] Signed DATE OF OPERATION: 04/27/2021 SURGEON: Radhames Alvarez MD PREOPERATIVE DIAGNOSES: 1. Significant hematochezia with resultant anemia. 2. Recent history of cecal inflammatory lesion, presumptively cecal diverticulitis. POSTOPERATIVE DIAGNOSIS: Inflammatory lesion of cecum, high suspicion for malignancy, normal ileum, normal remaining colon. PROCEDURE: Total colonoscopy to cecum with intubation of ileum and biopsy of ileum and cecum. ANESTHESIA: Intravenous sedation, propofol infusion; Stacia Macdonald CRNA INDICATIONS: This 60-year-old white male was admitted on April 26, 2021 with progressive hematochezia. His hematocrit was noted to be 22. He was admitted by me only a few weeks ago with severe right lower abdominal pain, which on CT scan showed no evidence of appendicitis, but did confirm an inflammatory lesion, which was ultimately considered likely cecal diverticulitis. A CEA level was obtained at that time, which was normal. Anticipation for followup colonoscopy was made following resolution of his inflammatory symptoms likely in the next 2 weeks or so. In the meantime, however, he developed some rectal bleeding, which had progressed and was rather profound yesterday. He was seen in the emergency room and admitted by Dr. Mishra, found to have hematocrit of 22 with normal platelet count. 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 This was just more than a year ago. Unfortunately, he continues to smoke. He has been admitted and given a total of 4 units of blood transfusion and bowel prep and has no further ongoing bleeding at this time. Platelet transfusion was ordered by me. He is now to undergo colonoscopy to better characterize the source of the bleeding. He understands the risks of bleeding, infection, and perforation related to colonoscopy and wished to proceed. FINDINGS: The prep was excellent. Complete colonoscopy was undertaken to the cecum without Electronically Signed By: RADHAMES ALVAREZ MD 04/28/21 1127 PATIENT NAME: GLENN SAVAGE OPERATIVE REPORT DATE OF : 60 REPORT #: [id number] PHYSICIAN: RADHAMES ALVAREZ MD PCP: OTHER PCP REPORT IS CONFIDENTIAL AND NOT TO BE RELEASED WITHOUT AUTHORIZATION [facility] [address] [place], [place] [address] Signed question. There were no abnormalities other than the cecum itself, which had a very dense inflammatory process with a plastic-like texture on biopsy. Multiple biopsies were obtained. The lesion may represent only an inflammatory process. I do have concerns this represents malignancy, though it does not have the typical appearance. Intubation of the ileum was accomplished and the ileum was entirely normal. Biopsies were obtained nevertheless of course. DESCRIPTION OF PROCEDURE: The patient was brought to the endoscopy suite and placed in lateral decubitus position, given intravenous sedation with propofol infusional technique by the shell mold bonding machine operator. Digital rectal examination was normal. An Olympus video colonoscope was passed in the rectum and manipulated throughout the colon ultimately intubating the cecum. A thick plastic-like ulcerated cecal lesion was noted. It did not have the usual exophytic appearance of typical malignancy nor the deep ulcerated base of typical malignancy, but certainly would have been the cause of his recent bleeding. Multiple biopsies were taken of the lesion. With all due care, the ileum was intubated and found to be entirely normal. A biopsy was obtained of the ileum as well. The scope was withdrawn and further withdrawal of scope throughout the colon showed no sign of other abnormality and specifically no sign of diverticula. The scope was removed and the patient was taken to the recovery room in good condition. CONCLUDING DIAGNOSES: Inflammatory cecal lesion. No doubt this cause of his recent bleeding. If this represents malignancy, then colectomy will be indicated. If it is inflammatory only, then anti-inflammatory medications would be initiated. We will confer with Dr. Mishra in this regard. MD ALEJANDRA Hernandez/VERONICAL /[id number] cc: Fanta Mishra MD Electronically Signed By: RADHAMES ALVAREZ MD 04/28/21 1127 PATIENT NAME: GLENN SAVAGE OPERATIVE REPORT DATE OF : 60 REPORT #: [id number] PHYSICIAN: RADHAMES ALVAREZ MD PCP: OTHER PCP REPORT IS CONFIDENTIAL AND NOT TO BE RELEASED WITHOUT AUTHORIZATION [facility] [address] [place], [place] [address] Signed Copies: PITEO,FANTA DO ~ Electronically Signed By: RADHAMES ALVAREZ MD 04/28/21 1127 PATIENT NAME: JANETTEGLENN RUFINA OPERATIVE REPORT DATE OF : 60 REPORT #: [id number] PHYSICIAN: RADHAMES ALVAREZ MD PCP: OTHER PCP REPORT IS CONFIDENTIAL AND NOT TO BE RELEASED WITHOUT AUTHORIZATION
--- NOTE | 2021-04-28 11:27 | CONS ---
[facility] [address], [place] [address] Signed DATE OF CONSULTATION: 04/26/2021 REQUESTING PHYSICIAN: Davon Mishra MD. CONSULTING PHYSICIAN: Radhames Alvarez MD. PROBLEM: Hematochezia and syncopal episode associated with it. HISTORY OF PRESENT ILLNESS: This 60-year-old white man is known to me from the past having been seen on April 18, 2021 for hospitalization for what was considered probable cecal diverticulitis. He was hospitalized between April 15 and April 18 having presented with progressive abdominal pain in the right lower quadrant. A CT scan was performed at that time, which showed possible intramural abscess, later likely discounted to being actually primarily cecal inflammation and probable cecal diverticulitis. He does have diverticula elsewhere in the colon. He was treated conservatively with intravenous antibiotics, transitioning to oral antibiotics. Yesterday, he presented to the emergency room with some amount of rectal bleeding. It was not much and his hematocrit was found to be 29.6, which was better than at the time of his discharge. He was discharged from the emergency room with plans to follow up with me in the office in the coming week. Colonoscopy had always been anticipated once his diverticulitis problem had settled down. The patient has undergone a Cologuard test in the past, which was said to be negative. The patient had persistent bleeding earlier in the day today and called the hospital offset assistant press operator, who contacted me and I spoke with the patient. As he had persistent bleeding upon its recurrence, I recommended he present to the emergency room. He did so, but was transported by EMS services as he had become lightheaded and had a syncopal episode, striking his head. He was noted to have hematocrit of only 22 and was somewhat hypotensive with a blood pressure of 97 systolic and a pulse of 88. It is notable that the patient takes both aspirin and Plavix related to coronary stenting performed over a year ago. His medications at admission included atorvastatin, aspirin, Plavix, lisinopril, tamsulosin, testosterone weekly and Chantix. His emergency room evaluation and treatment included blood transfusion under the direction of Dr. Helms and admission by Dr. Mishra for GI bleed to the intensive care unit. He has had 2 units of blood and a followup hematocrit is pending. He has had Electronically Signed By: RADHAMES ALVAREZ MD 04/28/21 1127 PATIENT NAME: GLENN SAVAGE CONSULTATION DATE OF : 60 REPORT #: [id number] PHYSICIAN: RADHAMES ALVAREZ MD PCP: OTHER PCP REPORT IS CONFIDENTIAL AND NOT TO BE RELEASED WITHOUT AUTHORIZATION [facility] [address], [place] [address] Signed minimal amount of moderate clotted type blood per rectum since being in the intensive care unit. His main complaint currently is that of a headache and some neck pain. The patient did undergo scanning of the head and cervical spine, which showed no evidence of intracranial injury or bony injury in any way of the skull or cervical spine. There was a small frontal scalp hematoma. The patient does have a bit of a headache and some neck pain in relation to this, but no neurologic symptoms otherwise. PAST MEDICAL HISTORY: Includes a distant history of myocardial infarction related to the left anterior descending coronary artery, which he underwent stenting in April of 2020. He has concurrent hypertension and smoking history. REVIEW OF SYSTEMS: His only complaint currently is that of the headache that is mild and some neck pain without radicular symptoms. He does not have abdominal pain per se. He did have some abdominal cramping antecedent to his tereista blood per rectum today. PHYSICAL EXAMINATION: GENERAL: Pleasant white man who is alert and oriented. Does not look diaphoretic. VITAL SIGNS: Temperature is 97.8, pulse 74, blood pressure 130/77, O2 saturation 95% on room air. NECK: Trachea is midline. CHEST: Shows normal respiratory excursion. He has no tachypnea. HEART: Regular. ABDOMEN: Soft and nondistended. There is no focal mass or tenderness. EXTREMITIES: Show no clubbing, cyanosis, or edema. NEUROLOGIC: Shows extraocular eye movements to be normal. Protrudes tongue to the midline without problem. Moves all extremities to command. LAB STUDIES: On presentation, white count was 13.6, hematocrit 22.0, hemoglobin 7.2, platelets 476,000. Chem profile notable for creatinine elevated at 1.36. Electrolytes were otherwise normal. Total protein 4.9, albumin 3.0. Coag studies showed a PT of 15.7, INR of 1.24. COVID test is not yet obtained, but will be. ASSESSMENT: The patient has had significant enough hematochezia to drop his hematocrit to 22 from 27 last night. His lightheadedness is associated likely with his gastrointestinal bleeding culminated in a fall for which a CT scan of neck and head shows no sign of intracranial or bony injury other than a small subcutaneous hematoma of the forehead. The source of his rectal bleeding is uncertain, but very probably relates to diverticular disease rather than neoplastic disease. Electronically Signed By: RADHAMES ALVAREZ MD 04/28/21 1127 PATIENT NAME: GLENN SAVAGE CONSULTATION DATE OF : 60 REPORT #: [id number] PHYSICIAN: RADHAMES ALVAREZ MD PCP: OTHER PCP REPORT IS CONFIDENTIAL AND NOT TO BE RELEASED WITHOUT AUTHORIZATION [facility] [address] [place], [place] [address] Signed He can be treated for his headache with Tylenol and we will initiate a bowel prep anticipating colonoscopy as soon as is feasible. Continued monitoring of his hemodynamic status as well as his CBC and so forth would be appropriate. Cessation of his Plavix and aspirin would be appropriate under the circumstances of GI bleeding despite his prior history of stenting. His stent was placed more than a year ago and on that basis less than that. Discussed all this with the patient who concurs and agrees to proceed as I have described. Timing of the colonoscopy will be predicated on his hemodynamic instability results of his bowel prep and similar such factors. MD ALEJANDRA Hernandez/MODL /[id number] cc: MD Davon Hubbard MD Copies: TERESA HELMS MD, BRIAN DO ~ Electronically Signed By: RADHAMES ALVAREZ MD 04/28/21 1127 PATIENT NAME: GLENN SAVAGE CONSULTATION DATE OF : 60 REPORT #: [id number] PHYSICIAN: RADHAMES ALVAREZ MD PCP: OTHER PCP REPORT IS CONFIDENTIAL AND NOT TO BE RELEASED WITHOUT AUTHORIZATION
--- NOTE | 2021-04-28 11:47 | NUR ---
ALL DISCHARGE INSTRUCTIONS REVIEWED WITH PT. AND QUESTIONS ANSWERED. IVS REMOVED WITH CATH INTACT. PT. LEFT WITH ALL BELONGINGS WITH RN AND WAS PICKED UP BY .
--- NOTE | 2021-05-02 15:14 | PATH ---
[facility] [place] [facility] [address] [place], [place] [address] Signed THIS IS AN ADDENDUM REPORT SPECIMEN(S): A CECUM BIOPSY SPECIMEN(S): B TERMINAL ILEUM BIOPSY SPECIMEN SOURCE: A. CECUM BIOPSY B. TERMINAL ILEUM BIOPSY CLINICAL HISTORY: GI bleed; cecal lesion MICROSCOPIC DESCRIPTION: Histologic sections of all submitted blocks are examined by light microscopy. These findings, together with the gross examination, support the pathologic diagnosis. FINAL PATHOLOGIC DIAGNOSIS: A. Cecum, biopsy: - Colonic mucosa with chronic active colitis and ulceration, see Comment. B. Terminal ileum, biopsy: - Small bowel mucosa with increased lamina propria chronic inflammation. COMMENT: For part A, an immunohistochemical stain for AE1/AE3 is negative for occult carcinoma. An immunohistochemical stain for CMV has been ordered and will be reported in an addendum. BRP:slc:[id number] GROSS DESCRIPTION: Two specimens are received in two containers, labeled "CA." A. The specimen, labeled "CA, 1," and designated on the requisition as "cecum biopsy," received in formalin and consists of five reece soft tissue fragments that measure 0.2 to 0.4 cm in greatest dimension. The specimen is entirely submitted in cassette (A1). B. The specimen, labeled "CA, 2," and designated on the requisition as "terminal ileum biopsy," is received in formalin and consists of two reece soft tissue fragments that measure 0.3 cm in greatest dimension. The specimen is entirely submitted in cassette (B1). FB (under the direct supervision of a pathologist) The Gross Description was prepared using a voice recognition system. The report was reviewed for accuracy; however, sound-alike word errors, addition and/or PATIENT NAME: GLENN SAVAGE PATHOLOGY DATE OF : 60 REPORT #: [id number] PHYSICIAN: JANESSA PATHOLOGY PCP: OTHER PCP REPORT IS CONFIDENTIAL AND NOT TO BE RELEASED WITHOUT AUTHORIZATION [facility] [place] [facility] [address] [place], [place] [address] Signed deletions may occur. If there is any question about this report, please contact Client Services. PERFORMING LABORATORY: The technical component was performed by [facility], [address] [place] [id number] (Sales Operations Director: Nicky Ceballos MD; CLIA# [id number]). The professional interpretation was performed by [facility], [facility], [address] [place] [address]. ADDITIONAL NOTES: Immunohistochemical and/or in situ hybridization studies were performed on this case with the appropriate positive controls that react as expected. This test was developed and its performance characteristics determined by [facility]. It has not been cleared or approved by the U.S. Food and Drug Administration. The FDA has determined that such clearance or approval is not necessary. This test is used for clinical purposes. It should not be regarded as investigational or for research. [facility] is certified under the Clinical Laboratory Improvement Amendments of 1988 (CLIA) as qualified to perform high complexity clinical laboratory testing. This assay has not been validated for specimens that have been decalcified. The technical component was performed by [facility], [address] [place] [id number] (Sales Operations Director: Lalit Terrazas D.O.; CLIA#: [id number]). The professional interpretation was performed by [facility], [facility], [address] [place] [address]. REASON FOR ADDENDUM: To add results of additional testing. ADDENDUM COMMENT: For part A, an immunohistochemical stain for CMV is negative. The above interpretation is unchanged. BRP:rosanne Diagnostician: Sam Wheeler MD Pathologist Electronically Signed 05/02/2021 PATIENT NAME: GLENN SAVAGE PATHOLOGY DATE OF : 60 REPORT #: [id number] PHYSICIAN: JANESSA PATHOLOGY PCP: OTHER PCP REPORT IS CONFIDENTIAL AND NOT TO BE RELEASED WITHOUT AUTHORIZATION [facility] [place] [facility] [address] [facility] [place] [address] Signed Copies: ~ PATIENT NAME: GLENN SAVAGE PATHOLOGY DATE OF : 60 REPORT #: [id number] PHYSICIAN: JANESSA JONES PCP: OTHER PCP REPORT IS CONFIDENTIAL AND NOT TO BE RELEASED WITHOUT AUTHORIZATION
== END 2021-04-28 11:37 | disposition home or self-care (01) ==
LOC: ED 10:10 → CCU 10:11 → MS 04-27 16:25
PROVIDERS: Surgery; ADMIT Student in an Organized Health Care Education/Training Program; ATTEND Student in an Organized Health Care Education/Training Program
PROC: 0DBB8ZZ Excision of Ileum, Via Natural or Artificial Opening Endoscopic (ICD-10-PCS; 2021-04-27)
PROC: 0DBH8ZZ Excision of Cecum, Via Natural or Artificial Opening Endoscopic (ICD-10-PCS; principal; 2021-04-27 10:30)
DX: K92.1 Melena (principal); D62 Acute posthemorrhagic anemia; K51.90 Ulcerative colitis, unspecified, without complications; I10 Essential (primary) hypertension; I25.10 Atherosclerotic heart disease of native coronary artery without angina pectoris; F17.210 Nicotine dependence, cigarettes, uncomplicated; E78.5 Hyperlipidemia, unspecified; I25.2 Old myocardial infarction; S00.03XA Contusion of scalp, initial encounter; X58.XXXA Exposure to other specified factors, initial encounter; Z95.5 Presence of coronary angioplasty implant and graft; Z79.82 Long term (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 of aspirin; Z79.02 Long term (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 of 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
CPT/HCPCS: 36430; 70450; 72125; 80048; 80053; 85007; 85018; 85025; 85610; 85730; 86850; 86900; 86901; 86922; 88305; 88341; 88342; 96365; 96374; 96375; 96376; 99285-25; A9270; C9113; G0378; J0131; J0696; J2001; J2405; J2704; J7040; J7121; P9016; P9035

== ENCOUNTER 2021-07-03 22:35 | Emergency (ER) | payer OTHER ==
[~2021-07-03] VITALS: Ht 180.3 cm; Wt 79.4 kg
--- NOTE | 2021-07-04 18:14 | EKG ---
[facility] [address] [facility] [place], [place] [address] Signed Normal sinus rhythm Cannot rule out Anterior infarct (cited on or before 15-APR-2021) Abnormal ECG When compared with ECG of 15-APR-2021 04:21, Vent. rate has decreased BY 34 BPM Confirmed by KALEN DA SILVA MD ([id number]) on 07/04/2021 6:14:10 PM Electronically Signed By: KALEN DA SILVA MD 07/04/21 1814 PATIENT NAME: GLENN SAVAGE Electrocardiogram DATE OF : 60 PHYSICIAN: KALEN DA SILVA MD REPORT #: [id number] REPORT IS CONFIDENTIAL AND NOT TO BE RELEASED WITHOUT AUTHORIZATION
== END 2021-07-04 01:50 | disposition home or self-care (01) ==
LOC: ED 22:35
DX: D64.9 Anemia, unspecified (principal); R42 Dizziness and giddiness; I25.2 Old myocardial infarction; Z87.891 Personal history of nicotine dependence; Z88.5 Allergy status to narcotic agent; Z79.899 Other long term (current) drug therapy
CPT/HCPCS: 70450; 80053; 84484; 85025; 93005; 93010; 99284-25; A9270

== ENCOUNTER 2022-01-04 06:02 | Inpatient (IN) | payer OTHER ==
[~2022-01-04] VITALS: Ht 180.3 cm; Wt 79.5 kg
[2022-01-04] MEDS ORDERED: CLOPIDOGREL75 MG PO (06:12)
[2022-01-04] MEDS ORDERED: OMEPRAZOLE20 MG PO (06:13)
--- NOTE | 2022-01-04 10:00 | NUR ---
REPORT RECEIVED FROM DRILL PRESS OPERATOR AND PT. ARRIVED VIA STRETCHER. HE IS ALERT AND ORIENTED TO ALL. HE C/0 10/10 ABDOMINAL PAIN. ADMIN 1MG DILAUDID. LUNGS CLEAR THROUGHOUT AND ON R.A. 02 SAT IS 100%. MD IN THE ROOM. VERBAL ORDER GIVEN FOR IM BENTYL. SKIN INTACT AND NO WOUNDS OR INJURIES PRESENT. IV WNL AND FLUSHES. ASSESSMENT COMPLETED. DISCUSSED SAFETY, PAIN MANAGEMENT AND MEDS. LEFT RESTING WITH CALL LIGHT IN REACH.
[2022-01-04] MEDS ORDERED: MESALAMINE DR400 MG PO (11:12)
[2022-01-04] MEDS ORDERED: TESTOSTERO200 MG/1 M IM (11:15)
--- NOTE | 2022-01-04 11:34 | NUR ---
PT. C/O 06/23 ABDOMINAL PAIN THAT IS STABBING ADMIN. PAIN MED. IVF BOLUS INFUSING. URINAL EMPTIED. LEFT RESTING WITH CALL LIGHT IN REACH.
--- NOTE | 2022-01-04 12:09 | NUR ---
PT. C/O SHARP ABDOMINAL PAIN. ADMIN SCHEDULED PAIN MED. PT. DENIES FURTHER NEEDS.
--- NOTE | 2022-01-04 12:19 | NUR ---
MED REC COMPLETE
--- NOTE | 2022-01-04 13:06 | NUR ---
IV PUPM ALARMING. BOLUS COMPLETED. D5LR AT 150 STARTED PER ORDER. CIPRO ALSO STARTED. PT REPORTING 8/10 PAIN. TORIDOL ADMINSTERED. PT DENIES FURTHER NEEDS. CALL LIGHT IN REACH.
--- NOTE | 2022-01-04 14:40 | NUR ---
PT. REPORTS PAIN HAS IMPROVED AND IS TOLERABLE ENOUGH TO SLEEP AFTER OXYCODONE AND TORODOL. URINAL EMPTIED. PT. LEFT RESTING WITH CALL LIGHT IN REACH.
--- NOTE | 2022-01-04 20:02 | NUR ---
SHIFT REPORT FROM IDA MIKE. SHE REPORTS PT ADMITTED FROM E[facility]. TODAY. HE HAS HAD SEVERE PAIN OVER SHIFT, MANAGEMENT WITH RX, HE CAN BE ABRASIVE AT TIMES TO STAFF VERBALLY THEN HE USUALLY APOLIGIZES. HE HAS HAD NO BM/NAUSAE/EMESIS SINCE ADMISSION. HE HAS VERBALIZED THAT HE PREFERS OXYCODONE AND TORDOL TO IV DILAUDID FOR PAIN MANAGEMENT.
--- NOTE | 2022-01-04 20:22 | NUR ---
PT HAS COMPLAINTS OF DAYSHIFT, NOT ROUNDING WHEN THEY SAID THEY WOULD, THIS RN SAID "I CANT SPEAK FOR WHAT HAPPENED WHEN I WASNT HERE, BUT WE TOGETHER WILL MAKE A PLAN FOR CARE TONIGHT" PT SAID "I CANT BELIEVE I AM IN SO MUCH PAIN AND THEY LET IT GET OUT OF CONTROL, THEY ARE NOT LETTING ME EAT ANYTHING" THIS RN OUT AT NURSES STATION WHEN CALLED TALKED WITH HIM IN REGARDS TO PT WANTING SOMETHING TO EAT, SAID OK TO ALLOW CLEAR LIQUIDS BUT TO INFORM PT THAT HE MAY HAVE INCREASED PAIN WITH INTAKE.
--- NOTE | 2022-01-04 21:45 | NUR ---
PT TOLERATED CLEARS WELL, HE REQUESTS MORE AT THIS TIME, CHICKEN BROTH PROVIDED, ALONG WITH WARM PACK FOR ABD. NO OTHER REQUESTS AT THIS TIME, HE HAS VOICED WANTING THE OXYCODONE WHEN IT IS AVAILABLE AGAIN, WHICH IS AT 2200.
--- NOTE | 2022-01-04 22:15 | NUR ---
PT ALERT AND ORIETNED, HE REPORTS PAIN 04/23, HE IS ADMINISTERED BENTYL AND OXYCODONE PRN AT THIS TIME. PT IS MORE RELAXED AT THIS TIME, MORE COOPERATIVE WITH PLAN OF CARE. PT HAD BEEN VERY AGITATED AT START OF SHIFT, VERBALIZING THROUGH GRITTED TEETH AND LOWERED VOICE, RELATED MULTIPLE COMPLAINTS FROM DAYSHIFT.
--- NOTE | 2022-01-04 23:34 | NUR ---
ROUNDING TO REASSESS PAIN, PT RESTING ON HIS LEFT SIDE IN BED, EYES CLOSED RR REGULAR AT 17 BPM, NO DISTRESS NOTED AT THIS TIME.
--- NOTE | 2022-01-05 01:14 | NUR ---
ROUNDING ON PT, FOR 0200 V/S, PT ALSEEP, ALERT TO NAME AND TOUCH, HE JERKED AWAKE, V/S COMPLETE, PT REPORTS PAIN 4/10, OXYCODONE 15MG PO PRN ADMINISTERED AT THIS TIME. PT HAS NO OTHER REQUESTS OR CONCERNS AT THIS TIME, HE HAS WATER AT BEDSIDE, HE REPORTS NO NAUSEA OR INCREASED PAIN WITH CLEAR LIQUID DIET.
--- NOTE | 2022-01-05 04:12 | NUR ---
PT WAS VERY PAINFUL AT START OF SHIFT, PT HAS BEEN ADMINISTERED OXYCODONE, BENTYL, AND TORDOL AVAILBLE, PAIN NOW WELL MANAGED, HE HAS BEEN ABLE TO SLEEP WELL OVER SHIFT. HE WAS VERY AGITATED AT START OF SHIFT WITH MULTIPLE COMPLAINTS ABOUT CARE FROM DAYSHIFT. ONCE PAIN MANAGED, HE HAS BEEN APPROPRIATE AND COOPERATIVE WITH CARE. HE IS VOIDING QUANTITIY SUFFICIENT AT BEDSIDE IN URINAL. HE HAS BEEN TOLERATING CLEAR LIQUID DIET WELL, HE REPORTS NO NEW INCREASE IN PAIN WITH CLEARS, NO NAUSEA OVER SHIFT.
--- NOTE | 2022-01-05 05:27 | NUR ---
PT REPORTS PAIN 5/10, OXYCODONE AND BENTYL PROVIDED PRN AT THIS TIME, HE IS ALERT AND ORIENTED, COOPERATIVE WITH CARE.
--- NOTE | 2022-01-05 07:33 | NUR ---
Patient sitting up in bed at this time, no distress. Patient reports his pain is tolerable at this time. IV site patent, abx infusing per provider order. Patient reports abdominal cramping has improved this morning. Fresh water provided. Call light within reach.
--- NOTE | 2022-01-05 08:58 | NUR ---
Oxycodone 10mg po admin for reports of 4/10 abd pain.
--- NOTE | 2022-01-05 09:09 | NUR ---
Patient reports his abdominal pain is 4/10, denies nausea and is tolerating clear liquids well. Patient reports he needs to discharge home today so he can prepare to go back to work tomorrow. Told patient I will make Dr. Monique aware he wants to discharge home. No current needs. IV patent, abx's infusing per provider order.
--- NOTE | 2022-01-05 10:22 | NUR ---
Updated patient regarding plan of care. Patient informed that Dr. Monique has advanced his diet to full liquids now. Yogurt provided to patient at this time. Patient verbalized that he needs to go home as soon as soon as possible, reassured patient that Dr. Monique will be around to see him shortly and can speak to him regarding plan of care.
--- NOTE | 2022-01-05 11:55 | NUR ---
Oxycodone 10mg po and Bentyl 20mg po for abdominal cramping and pain.
--- NOTE | 2022-01-05 12:08 | NUR ---
Patient doing well at this time, no distress. Patient reports he is tolerating full liquids well, no nausea. Fresh water provided. Patient denies current needs, personal supplies and call light within reach.
[2022-01-05] MEDS ORDERED: CIPROFLOXACIN500 MG PO (12:56)
[2022-01-05] MEDS ORDERED: METRONIDAZOLE500 MG PO (12:57)
[2022-01-05] MEDS ORDERED: OXYCODONE HCL5 MG PO (12:59)
[2022-01-05] MEDS ORDERED: NICOTINE1 EAC2 TD (12:59)
--- NOTE | 2022-01-08 14:08 | CONS ---
[facility] [address] [place], [place] [address] Signed DATE OF CONSULTATION: 01/04/2022 REQUESTING PHYSICIAN: Dr. Da Silva. PROBLEM: Transverse colon inflammatory lesion, history of cecal inflammatory lesion. HISTORY OF PRESENT ILLNESS: This 61-year-old white man presented to the emergency room at approximately 6:30 this morning. He began having pain in the early childhood specialist hours. It is severe enough that it awakened him at night. The patient is known to me from the past having had an area of cecal inflammation and profound anemia in April of 2021. Biopsies of the lesion did not confirm malignancy, though there was some suspicion for it. He had a normal CEA at that time as well. He was treated with prednisone and ultimately mesalamine 3 times a day, which he continues to take. The patient shows no evidence of anemia with hematocrit of 37.9. He was admitted by Dr. Da Silva with a presumptive diagnosis of recurrent segmental colitis. The CT scan showed an area about 6 cm in length, which was markedly thickened circumferentially consistent with inflammatory change, different than the location previously. The patient has rather extreme discomfort currently and not currently responsive to small doses of Dilaudid. PAST MEDICAL HISTORY: Does include occasional use of alcohol and marijuana. He has had coronary stenting in the past and knee surgery in the past. CURRENT MEDICATIONS: Include Plavix 75 mg daily, omeprazole 20 mg daily, lisinopril 20 mg daily, Flomax 0.8 mg daily and Lipitor 40 mg at bedtime. ALLERGIES: He describes allergy to morphine (itching). REVIEW OF SYSTEMS: He denies any shortness of breath or chest pain. He has primarily abdominal pain in the epigastric and right subcostal area. PHYSICAL EXAMINATION: Electronically Signed By: RADHAMES ALVAREZ MD 01/08/22 1408 PATIENT NAME: GLENN SAVAGE CONSULTATION DATE OF : 60 REPORT #: [id number] PHYSICIAN: RADHAMES ALVAREZ MD PCP: MEGAN MILES MD REPORT IS CONFIDENTIAL AND NOT TO BE RELEASED WITHOUT AUTHORIZATION [facility] [address], [place] [address] Signed GENERAL: White man looks to be in moderate discomfort at this time. VITAL SIGNS: Weight is 79.5 kg, body surface area 1.99 with a BMI of 24.4. Temperature of 98.5, pulse is 65, blood pressure 145/52, room air saturation is 100%. NECK: Trachea is midline. CHEST: Clear. HEART: Regular. ABDOMEN: Rather firm and marked tenderness is noted in the right subcostal and epigastric area. EXTREMITIES: Show no clubbing, cyanosis, or edema. LABORATORY STUDIES: Show white count of 17.0, hematocrit of 37.9, platelets 373,000. Chem profile is normal. Lactic acid is 1.1. Lipase 38 (normal). Urinalysis is normal. Serology shows negative COVID. Medications are reviewed. Currently getting Lipitor p.o., Flagyl IV, Cipro IV, Phenergan, Compazine, Protonix, Flomax, Percocet, nicotine patch, Dilaudid, hydrocortisone 100 mg IV q.8, Bentyl and Tylenol. I have reviewed the CT scan in detail. There appears to be no hepatic lesions. The cecum on my exam appears normal. The area of inflammatory change appears to be the right transverse colon in the right upper quadrant. There is definite thickening and edema. No evidence of free air. ASSESSMENT: He has significant discomfort at this time and as of yet his IV has not been started, reviewed that with the nurse. He is on appropriate antibiotics and additional pain medication might be outlined for the acute management currently. The lesion itself may represent diverticulitis problem or inflammatory bowel disease problem. He was treated with mesalamine somewhat empirically as he did not have typical pathologic findings to support that medication in the past. He should remain n.p.o. except for some liquids for comfort. Colonoscopy will ultimately be necessary but not in the acute setting. I believe the current regimen with antibiotics and IV steroids on the presumption this may represent inflammatory bowel disease is appropriate, but I will need to review additional chart notes from the past to affirm the pathology as documented on colonoscopy a year ago or so. This was in April of 2021, MD ALEJANDRA Hernandez/MODL Electronically Signed By: RADHAMES ALVAREZ MD 01/08/22 1408 PATIENT NAME: GLENN SAVAGE CONSULTATION DATE OF : 60 REPORT #: [id number] PHYSICIAN: RADHAMES ALVAREZ MD PCP: MEGAN MILES MD REPORT IS CONFIDENTIAL AND NOT TO BE RELEASED WITHOUT AUTHORIZATION [address] [address] Signed /[id number] cc: Kalen Da Silva MD Copies: KALEN DA SILVA MD ~ Electronically Signed By: RADHAMES ALVAREZ MD 01/08/22 1408 PATIENT NAME: GLENN SAVAGE RUFINA CONSULTATION DATE OF : 60 REPORT #: [id number] PHYSICIAN: RADHAMES ALVAREZ MD PCP: MEGAN MILES MD REPORT IS CONFIDENTIAL AND NOT TO BE RELEASED WITHOUT AUTHORIZATION
== END 2022-01-05 13:35 | disposition home or self-care (01) | DRG 392 ==
LOC: ED 06:02 → MS 09:12
PROVIDERS: ADMIT Internal Medicine; ATTEND Internal Medicine
DX: K52.3 Indeterminate colitis (principal); Z20.822 Contact with and (suspected) exposure to COVID-19; R19.5 Other fecal abnormalities; D72.829 Elevated white blood cell count, unspecified; T38.0X5A Adverse effect of glucocorticoids and synthetic analogues, initial encounter; I10 Essential (primary) hypertension; N40.0 Benign prostatic hyperplasia without lower urinary tract symptoms; I25.10 Atherosclerotic heart disease of native coronary artery without angina pectoris; K21.9 Gastro-esophageal reflux disease without esophagitis; E78.5 Hyperlipidemia, unspecified; I25.2 Old myocardial infarction; Z79.02 Long term (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 of 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; Z87.891 Personal history of nicotine dependence; Z98.890 Other specified postprocedural states; Z88.5 Allergy status to narcotic agent; Z79.899 Other long term (current) drug therapy
CPT/HCPCS: 36415; 74177; 80048; 80053; 81001; 83605; 83690; 85025; 85610; 96375; 96376; 99285-25; C9113; J0131; J0500; J0744; J1170; J1720; J1885; J2405; J2543; J7030; J7121; Q9967; U0003

== ENCOUNTER 2022-01-23 06:00 | Inpatient (IN) | payer OTHER ==
[~2022-01-23] VITALS: Ht 180.3 cm; Wt 77.1 kg
[~2022-01-23 06:00] MED LIST changes: +CLOPIDOGREL75 MG PO; +MESALAMINE DR400 MG PO; +METRONIDAZOLE500 MG PO; +NICOTINE1 EAC2 TD; +OMEPRAZOLE20 MG PO; +OXYCODONE HCL5 MG PO
--- OUTSIDE RECORDS SUMMARY | 2022-01-23 06:02 | XMS ---
PreManage Notification: GLENN SAVAGE [employer] Events No recent Security Events currently on file CRITERIA MET - - 2 Visits in 30 Days CARE PROVIDERS JUAN Bates [facility] Current PHONE: Unknown Lashanda has no Care Guidelines for this patient. EKendra VISIT COUNT (12 MO.) 6 [facility] TOTAL 6 NOTE: Visits indicate total known visits. ED/UCC VISIT TRACKING (12 MO.) 01/23/2022 06:00 MERE Miranda [place] TYPE: Emergency COMPLAINT: - ABD PAIN 01/04/2022 06:02 MERE Mrianda [place] TYPE: Emergency COMPLAINT: - ABD PAIN 07/03/2021 22:36 MERE Miranda [place] TYPE: Emergency COMPLAINT: - LOW BP. DIZZINESS DIAGNOSES: - Anemia, unspecified - Personal history of nicotine dependence - Dizziness and giddiness - Old myocardial infarction - Other fci (current) drug therapy - Allergy status to narcotic agent 04/26/2021 10:10 MERE Miranda [place] TYPE: Emergency COMPLAINT: - ABD PAIN 04/26/2021 00:48 MERE Miranda OR TYPE: Emergency COMPLAINT: - BLOOD IN STOOL DIAGNOSES: - Gastrointestinal hemorrhage, unspecified - Other extermination supervisor (current) drug therapy - Nicotine dependence, unspecified, uncomplicated - Allergy status to narcotic agent - Right lower quadrant pain - Old myocardial infarction - FCI (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 of aspirin 04/15/2021 04:12 MERE Miranda OR TYPE: Emergency COMPLAINT: - ABD UMU,CHEST TIGHTNESS INPATIENT VISIT TRACKING (12 MO.) 01/04/2022 09:12 MERE Miranda [place] TYPE: Medical Surgical COMPLAINT: - ENTERITIS,GI BLEED DIAGNOSES: - Other fecal abnormalities - Other fci (current) drug therapy - Old myocardial infarction - Benign prostatic hyperplasia without lower urinary tract symptoms - Indeterminate colitis - Personal history of nicotine dependence - Allergy status to narcotic agent - Essential (primary) hypertension - Hyperlipidemia, unspecified - Atherosclerotic heart disease of [place] coronary artery without angina pectoris - Elevated white blood cell count, unspecified - FCI (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 of 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 - Adverse effect of glucocorticoids and synthetic analogues, initial encounter - Noninfective gastroenteritis and colitis, unspecified - Gastro-esophageal reflux disease without esophagitis - Contact with and (suspected) exposure to COVID-19 - Other specified postprocedural states 04/26/2021 10:11 MERE Miranda OR TYPE: Observation COMPLAINT: - GI BLEED DIAGNOSES: - Disease of intestine, unspecified - Contusion of scalp, initial encounter - Melena - Old myocardial infarction - Presence of coronary angioplasty implant and graft - Acute posthemorrhagic anemia - Ulcerative colitis, unspecified, without complications - FCI (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 of aspirin - Essential (primary) hypertension - Exposure to other specified factors, initial encounter - Hyperlipidemia, unspecified - Nicotine dependence, cigarettes, uncomplicated - Atherosclerotic heart disease of [place] coronary artery without angina pectoris - FCI (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 of 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 04/15/2021 07:35 MERE Miranda OR TYPE: Medical Surgical COMPLAINT: - INTRALUMINAL ABSCESS DIAGNOSES: - Other extermination supervisor (current) drug therapy - Allergy status to narcotic agent - long term care phlebotomist (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 of 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 - Unspecified appendicitis - Unspecified appendicitis - Old myocardial infarction - Essential (primary) hypertension - long term care phlebotomist (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 of aspirin - Diverticulitis of large intestine without perforation or abscess without bleeding - Atherosclerotic heart disease of [place] coronary artery without angina pectoris - Peritonitis, unspecified - Presence of coronary angioplasty implant and graft - Presence of coronary angioplasty implant and graft - long term care phlebotomist (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 of aspirin - Allergy status to narcotic agent - Right lower quadrant pain - Nicotine dependence, cigarettes, uncomplicated - long term care phlebotomist (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 of 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 - Old myocardial infarction - Essential (primary) hypertension - Atherosclerotic heart disease of [place] coronary artery without angina pectoris - Nicotine dependence, cigarettes, uncomplicated - Other extermination supervisor (current) drug therapy - Diverticulitis of large intestine without perforation or abscess without bleeding [email or web address]
[2022-01-23] MEDS ORDERED: OXYCODONE HCL5 MG PO (14:32)
--- NOTE | 2022-01-24 05:43 | CONS ---
[facility] [address], [place] [address] Signed DATE OF CONSULTATION: 01/23/2022 CHIEF COMPLAINT: Left-sided abdominal pain. HISTORY OF PRESENT ILLNESS: Glenn is a 61-year-old gentleman, who actually worked and retired from our [employer]. 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 In April of 2021, he came in with right-sided abdominal pain and was found to have inflammatory changes in the cecum. Dr. Gonzalez was able to pass the colonoscope to this area with biopsies which showed inflammatory changes not only in his cecum but probably some in the terminal ileum as well. The rest of the colon seemed to be fine. He improved on IV hydrocortisone and was allowed to be discharged to home. He came back January 03, 2022 with more right upper quadrant abdominal pain. This time he had inflammatory changes in the right transverse colon. Again, he improved quickly with IV hydrocortisone and was sent home on the mesalamine. He generally was doing well but developed pain now more to the left of his umbilicus in the left mid quadrant of the abdomen. He is feeling waves of crampy abdominal pain. He came to the emergency room for evaluation. The white count is normal and he is slightly anemic. He was very anemic when he 1st came last year requiring blood transfusions and even platelets have been ordered. His BUN is only 22. COVID is negative. Urinalysis negative. Liver function tests are negative. His previous CEA level was negative. Given the CT scan findings of wall thickening in his distal transverse colon with a partial colon obstruction, I was asked to see him and admit him as a general surgeon on-call. In the meantime, I have reviewed his records. PAST MEDICAL HISTORY: [place] in 2020, diverticulosis, possible inflammatory bowel disease in April of 2021 and December 2021, hypertension, BPH, hyperlipidemia, chronic back pain and right shoulder pain. PAST SURGICAL HISTORY: Left knee surgery, cardiac stent and a colonoscopy in April [address] Gonzalez with inflammation in the cecum and possibly even the terminal ileum. SOCIAL HISTORY: He used to smoke two packs of cigarettes a day. He is down to one or two cigarettes per day. He has one beer a day. He chews marijuana gummies to help for his back and he likes to chew tobacco. He has a lifelong partner Ciera Negrete at [phone]. They live here in [place], [place]. He prefers the [facility] in [place], [place]. He does drive. He has no children. 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 Dr. Rosalina Reynolds is his primary care provider up in [place], [place]. He knows he needs to get a primary care provider down here in [place]. Electronically Signed By: IRENE BENSON MD 01/24/22 0543 PATIENT NAME: GLENN SAVAGE CONSULTATION DATE OF : 60 REPORT #: [id number] PHYSICIAN: IRENE BENSON MD PCP: ROSALINA REYNOLDS MD REPORT IS CONFIDENTIAL AND NOT TO BE RELEASED WITHOUT AUTHORIZATION [facility] [address], [place] [address] Signed FAMILY HISTORY: He has two sisters, but no major medical problems. REVIEW OF SYSTEMS: He had 10 systems reviewed and the pertinent positives are included in the above. ALLERGIES: Morphine causes pruritus. MEDICATIONS: Tamsulosin, lisinopril, atorvastatin, Plavix, Prilosec and mesalamine t.i.d. PHYSICAL EXAMINATION: VITAL SIGNS: Blood pressure is 132/66, heart rate 48, respiratory rate 16, temperature is 98.3, he is 98% on room air. He is 5 feet 11 inches at 80 kg. GENERAL: Glenn is a 61-year-old gentleman, lying supine semi-recumbent in his ER bed. He has been working on his [employer]. The EKG showed normal sinus rhythm. He has no shortness of breath or increased work of breathing. His abdomen is generally flat. He has some voluntary guarding and he is tender locally just to the left of the umbilicus. Rectal exam is not performed currently. LABORATORY DATA: His white blood count 7.2, hemoglobin 11.7, neutrophils 69, BUN 22. COVID is negative. Urinalysis negative. CEA is pending. Liver function tests are negative. Albumin is 3.9, lipase is 46. His pathology report from last year was reviewed and it showed some inflammatory changes in the cecum and even the terminal ileum. RADIOGRAPHIC STUDIES: A CT scan of abdomen and pelvis is reviewed the report and the images and he appears to have some thickening in the distal transverse colon with stool proximal to this but decompressed after this. ASSESSMENT AND PLAN: Glenn is a 61-year-old gentleman, who presents with what may be inflammatory bowel disease. It seems to have traveled maybe certainly in the cecum, maybe the proximal right colon, and now more of the transverse colon. Despite the mesalamine, he seems to have had a recurrence. He seemed to respond very quickly to IV steroids on his previous admission. CT scan is not concerning for any metastatic disease. His previous CEA level was unremarkable. At this point, we are going to admit him and contact our Internal Medicine Service. We will go ahead and hold the Plavix and start him on some IV steroids. If we get this to settle down, we could certainly repeat his colonoscopy on this admission. He may or may not need surgery depending on how he progresses. I Electronically Signed By: IRENE BENSON MD 01/24/22 0543 PATIENT NAME: GLENN SAVAGE CONSULTATION DATE OF : 60 REPORT #: [id number] PHYSICIAN: IRENE BENSON MD PCP: ROSALINA REYNOLDS MD REPORT IS CONFIDENTIAL AND NOT TO BE RELEASED WITHOUT AUTHORIZATION [facility] [address] [place] [id number] Signed have reviewed this with Glenn. He has expressed understanding and agrees with the above plan. Irene Benson MD ALB/MODL /[id number] cc: MD Dr. Rosalina Dunlap Copies: IRENE BENSON MD ~ Electronically Signed By: IRENE BENSON MD 01/24/22 0543 PATIENT NAME: GLENN SAVAGE CONSULTATION DATE OF : 60 REPORT #: [id number] PHYSICIAN: IRENE BENSON MD PCP: ROSALINA REYNOLDS MD REPORT IS CONFIDENTIAL AND NOT TO BE RELEASED WITHOUT AUTHORIZATION
--- NOTE | 2022-01-24 15:33 | EKG ---
[facility] [address] [place], [place] [address] Signed Sinus bradycardia Otherwise normal ECG When compared with ECG of 03-JUL-2021 22:44, No significant change was found Confirmed by KALEN DA SILVA MD ([id number]) on 01/24/2022 3:33:38 PM Electronically Signed By: KALEN DA SILVA MD 01/24/22 1533 PATIENT NAME: GLENN SAVAGE RUFINA Electrocardiogram DATE OF : 60 PHYSICIAN: KALEN DA SILVA MD REPORT #: [id number] REPORT IS CONFIDENTIAL AND NOT TO BE RELEASED WITHOUT AUTHORIZATION
--- NOTE | 2022-01-26 10:33 | OR ---
[facility] [address], [place] [address] Signed DATE OF OPERATION: 01/26/2022 SURGEON: Irene Benson MD PREOPERATIVE DIAGNOSIS: Distal transverse colon obstruction. POSTOPERATIVE DIAGNOSES: 1. Ulcerated mass at 62 cm (tattoo). 2. Minimal sigmoid colon diverticulosis. PROCEDURE: Colonoscopy with cold biopsies and injection of tattoo. ESTIMATED BLOOD LOSS: Minimal. INDICATIONS: Glenn is a 61-year-old gentleman, who in April of 2021 came with some inflammatory changes in the cecum. He underwent a colonoscopy with Dr. Gonzalez while in the hospital. There was some concern that it could have been a tumor. However, it has resolved. Biopsies were taken from the cecum and in the terminal ileum, which showed some inflammatory changes but no definite inflammatory bowel disease and in particular Crohn's. The rest of his colon seemed to be fine. He had improved on IV hydrocortisone and had been discharged to home. He came back in December of 2021 with more upper abdominal pain probably in the right upper quadrant. There seemed to be an inflammatory process in the right transverse colon. Again, he improved very quickly with IV hydrocortisone and was discharged to home on mesalamine. He said he was generally doing well, but he developed pain now more to the left of his umbilicus in the left mid quadrant of the abdomen. He could feel waves of crampy abdominal pain. Later, he told me that he actually passed quite a bit of blood per rectum. He came back to the emergency room for evaluation. The white count was normal. He was slightly anemic. He actually was anemic before and apparently was given blood transfusion. He then had to receive platelets. On this occasion though the BUN is only 22. His COVID was negative. Liver function tests were negative. His previous CEA was negative. We have yet to receive a CEA on this admission. The repeat CT scan shows a wall thickening in his distal transverse colon with a partial colon obstruction. I have been asked to see him as a general surgeon on-call. I had met with Glenn and reviewed the above findings with him. I had reviewed his previous records. Given his age and the concept that this may have been in three separate areas, the diagnosis of Crohn's has been entertained. Electronically Signed By: IRENE BENSON MD 01/26/22 1033 PATIENT NAME: GLENN SAVAGE OPERATIVE REPORT DATE OF : 60 REPORT #: [id number] PHYSICIAN: IRENE BENSON MD PCP: ROSALINA MILES MD REPORT IS CONFIDENTIAL AND NOT TO BE RELEASED WITHOUT AUTHORIZATION [facility] [address] [place], [place] [address] Signed However, I told him despite all his previous findings, this would more than likely be a tumor in the colon. We were able to hydrate him and he was passing some flatus, although we could see quite a bit of stool in the colon proximal to this lesion. Distal to the lesion, it was more or less decompressed. He is a very strong minded individual and he was able to take his bowel prep yesterday despite the crampy ways of abdominal pain being a 7/10. Eventually it broke through and he had multiple bowel movements. In the hospital, we had discussed repeating the colonoscopy this morning. He understands colonoscopy and having gone through it last fall. There is risk including, but not limited to gas bloating, crampy abdominal pain, bleeding, perforation requiring surgery, and missed diagnosis. Also, given the acute setting, we did ask for monitored anesthesia care, which proved to be a nelson decision. He had expressed understanding and wished to proceed. PROCEDURE NOTE: Glenn was taken into our endoscopy suite and placed in the left lateral decubitus position. He was given monitored anesthesia care with propofol per our nurse front line supervisor. A digital rectal exam was performed. He has minimal circumferential external hemorrhoids. He had good sphincter tone. Prostate was moderately indurated and enlarged. The adult colonoscope had been introduced and advanced under direct visualization of the camera. He has a fairly long left colon. We did see a few small diverticula in the sigmoid colon. They are small in size, few in number, and scattered about. We eventually made it up to this circumferential ulcerated mass. It is very indurated. It was not actively bleeding at that time. We took multiple circumferential biopsies of this lesion and felt it to be quite indurated. We went ahead and placed a tattoo on the distal side of the tumor. After this, our scope passed through this area without resistance and went around to a fairly short transverse and right colon and into the cecum itself. We could easily see the appendiceal orifice and ileocecal valve. His prep was actually quite good. The scope was then slowly withdrawn. We had taken multiple pictures throughout for photodocumentation. No other lesions noted in the colon or rectum on withdrawal of the scope. The scope had been retroflexed in the rectum and we could not get a really good view of the anus, but nevertheless we did not see any obvious tumor. After this, the gas was suctioned out and the colonoscope removed. Glenn tolerated the procedure quite well. RECOMMENDATIONS: I will review this with Luke in detail and we will order a CEA level as well. In the meantime, he will be returning to his room and back on a liquid diet. Irene Benson MD Electronically Signed By: IRENE BENSON MD 01/26/22 1033 PATIENT NAME: GLENN SAVAGE OPERATIVE REPORT DATE OF : 60 REPORT #: [id number] PHYSICIAN: IRENE BENSON MD PCP: ROSALINA MILES MD REPORT IS CONFIDENTIAL AND NOT TO BE RELEASED WITHOUT AUTHORIZATION [address] [address] Signed ALB/MODL /[id number] cc: MD Dr. Rosalina Dunlap Copies: IRENE BENSON MD ~ Electronically Signed By: IRENE BENSON MD 01/26/22 1033 PATIENT NAME: GLENN SAVAGE OPERATIVE REPORT DATE OF : 60 REPORT #: [id number] PHYSICIAN: IRENE BENSON MD PCP: ROSALINA MILES MD REPORT IS CONFIDENTIAL AND NOT TO BE RELEASED WITHOUT AUTHORIZATION
[2022-01-26] MEDS ORDERED: MIRALAX17 GM PO (12:08)
[2022-01-26] MEDS ORDERED: COLACE100 MG PO (12:08)
--- NOTE | 2022-01-31 16:45 | PATH ---
[facility] [address] [place], [place] [address] Signed SPECIMEN(S): A DISTAL TRANSVERSE COLON BX AT 62 CM SPECIMEN SOURCE: A. DISTAL TRANSVERSE COLON BX AT 62 CM CLINICAL HISTORY: large bowel obstruction/ulcerative lesions/tumor. FINAL PATHOLOGIC DIAGNOSIS: Colon, distal transverse at 62 cm, biopsy: - Colonic mucosa with chronic, active colitis and ulceration. - Negative for granulomas or malignancy. - See comment. COMMENT: A minute fragment shows hyalinized blood vessels with what appears to be a hyalinized thrombus. Of note, no histologic changes of ischemia (mucosal epithelial injury, lamina propria hyalinization, loss of mucin) is seen in the intact mucosa. Immunohistochemical stains (with appropriately staining controls) were performed. A pancytokeratin is negative for infiltrative carcinoma and a CMV immunostains is negative. The differential diagnosis includes infectious etiologies and inflammatory bowel disease, however the possibility of a thrombotic event contributing to the features cannot be entirely excluded. The results of the previous biopsy from 04/29/21 is noted. NAL:cml:C2NR MICROSCOPIC EXAMINATION: Histologic sections of all submitted blocks are examined by light microscopy. These findings, together with the gross examination, support the pathologic diagnosis. GROSS DESCRIPTION: The specimen, labeled "CA, distal transverse colon biopsy at 62 cm," is received in formalin and consists of eight reece soft tissue fragments that measure 0.2-0.3 cm in greatest dimension. The specimen is entirely submitted in cassette (A1). JS (under the direct supervision of a pathologist) The Gross Description was prepared using a voice recognition system. The report was reviewed for accuracy; however, sound-alike word errors, addition and/or PATIENT NAME: GLENN SAVAGE PATHOLOGY DATE OF : 60 REPORT #: [id number] PHYSICIAN: JANESSA PATHOLOGY PCP: MEGAN MILES MD REPORT IS CONFIDENTIAL AND NOT TO BE RELEASED WITHOUT AUTHORIZATION [facility] [address] [place] [address] Signed deletions may occur. If there is any question about this report, please contact Client Services. ADDITIONAL NOTES: Immunohistochemical and/or in situ hybridization studies were performed on this case with the appropriate positive controls that react as expected. This test was developed and its performance characteristics determined by [facility]. It has not been cleared or approved by the U.S. Food and Drug Administration. The FDA has determined that such clearance or approval is not necessary. This test is used for clinical purposes. It should not be regarded as investigational or for research. [facility] is certified under the Clinical Laboratory Improvement Amendments of 1988 (CLIA) as qualified to perform high complexity clinical laboratory testing. This assay has not been validated for specimens that have been decalcified. The technical component was performed by [facility], [address] [place] [id number] (CLIA# [id number]). Professional interpretation was performed by [email or web address], [address] [place] [id number] (CLIA# [id number]). PERFORMING LABORATORY: The technical component was performed by [facility], [address] [place] [id number] (CLIA# [id number]). Professional interpretation was performed by [facility], [address] [address] (CLIA# [id number]). Diagnostician: Daisha Arana MD Pathologist Electronically Signed 01/31/2022 Copies: ~ PATIENT NAME: GLENN SAVAGE PATHOLOGY DATE OF : 60 REPORT #: [id number] PHYSICIAN: JANESSA PATHOLOGY PCP: MEGAN MILES MD REPORT IS CONFIDENTIAL AND NOT TO BE RELEASED WITHOUT AUTHORIZATION
== END 2022-01-26 13:13 | disposition home or self-care (01) | DRG 392 ==
LOC: ED 06:00 → MS 06:01
PROVIDERS: ADMIT Colon & Rectal Surgery; ATTEND Colon & Rectal Surgery
PROC: 0DBN8ZX Excision of Sigmoid Colon, Via Natural or Artificial Opening Endoscopic, Diagnostic (ICD-10-PCS; principal; 2022-01-26 08:56)
DX: K57.30 Diverticulosis of large intestine without perforation or abscess without bleeding (principal); K56.600 Partial intestinal obstruction, unspecified as to cause; Z20.822 Contact with and (suspected) exposure to COVID-19; K63.89 Other specified diseases of intestine; I10 Essential (primary) hypertension; K21.9 Gastro-esophageal reflux disease without esophagitis; I25.10 Atherosclerotic heart disease of native coronary artery without angina pectoris; N40.0 Benign prostatic hyperplasia without lower urinary tract symptoms; D64.9 Anemia, unspecified; E78.5 Hyperlipidemia, unspecified; I25.2 Old myocardial infarction; F17.210 Nicotine dependence, cigarettes, uncomplicated; Z98.890 Other specified postprocedural states; Z88.5 Allergy status to narcotic agent; Z79.02 Long term (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 of 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; Z79.899 Other long term (current) drug therapy; Z95.5 Presence of coronary angioplasty implant and graft
CPT/HCPCS: 00811; 36415; 74177; 80048; 80053; 81001; 82378; 83690; 83735; 84100; 85025; 86140; 87502; 93005; 93010; C9113; C9803; J1170; J1650; J1956; J2405; J2704; J2930; J7030; J7121; Q0177; Q9967; U0003

== ENCOUNTER 2022-07-24 14:53 | Emergency (ER) | payer OTHER ==
[~2022-07-24 14:53] MED LIST changes: +COLACE100 MG PO; +MIRALAX17 GM PO; +MULTI VITAMIN1 EACH PO
[2022-07-24] MEDS ORDERED: METHYLPREDNISOLO4 M1 PO (18:07)
[2022-07-24] MEDS ORDERED: NEURONTIN300 MG PO (18:07)
[2022-07-24] MEDS ORDERED: HYDROCODON-ACE1 EA11 PO (18:07)
== END 2022-07-24 18:26 | disposition home or self-care (01) ==
LOC: ED 14:53
DX: M54.12 Radiculopathy, cervical region (principal); I25.2 Old myocardial infarction; Z87.891 Personal history of nicotine dependence; Z88.5 Allergy status to narcotic agent; Z79.899 Other long term (current) drug therapy
CPT/HCPCS: 96372; 99283; A9270; J1170; J8540

== ENCOUNTER 2022-09-24 17:57 | Emergency (ER) | payer OTHER ==
[~2022-09-24] VITALS: Ht 180.3 cm; Wt 75.0 kg
[~2022-09-24 17:57] MED LIST changes: +HYDROCODON-ACE1 EA11 PO; +METHYLPREDNISOLO4 M1 PO; +NEURONTIN300 MG PO
--- OUTSIDE RECORDS SUMMARY | 2022-09-24 18:00 | XMS ---
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 EKendra VISIT COUNT (12 MO.) Karen Gallagher TOTAL 4 NOTE: Visits indicate total known visits. ED/UCC VISIT TRACKING (12 MO.) 09/24/2022 17:57 [facility] TYPE: Emergency COMPLAINT: - HEAD INJURY/VOMITING 07/24/2022 14:54 [facility] TYPE: Emergency COMPLAINT: - RT SHOULDER INJURY DIAGNOSES: - Pain in right shoulder - Other retirement (current) drug therapy - Personal history of nicotine dependence - Old myocardial infarction - Radiculopathy, cervical region - Allergy status to narcotic agent 01/23/2022 06:00 [facility] TYPE: Emergency COMPLAINT: - ABD PAIN 01/04/2022 06:02 [facility] OR TYPE: Emergency COMPLAINT: - ABD PAIN INPATIENT VISIT TRACKING (12 MO.) 01/23/2022 11:21 [facility] OR TYPE: Medical Surgical COMPLAINT: - LARGE BOWEL OBSTRUCTION DIAGNOSES: - Atherosclerotic heart disease of [place] coronary artery without angina pectoris - Essential (primary) hypertension - Partial intestinal obstruction, unspecified as to cause - Diverticulosis of large intestine without perforation or abscess without bleeding - Nicotine dependence, cigarettes, uncomplicated - Presence of coronary angioplasty implant and graft - Old myocardial infarction - Other retirement (current) drug therapy - Partial intestinal obstruction, unspecified as to cause - Allergy status to narcotic agent - Allergy status to narcotic agent - Other bed bug exterminator (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) drug therapy - Benign prostatic hyperplasia without lower urinary tract symptoms - Diverticulosis of large intestine without perforation or abscess without bleeding - Other specified diseases of intestine - Hyperlipidemia, unspecified - Anemia, unspecified - Other specified diseases of intestine - Other specified postprocedural states - Gastro-esophageal reflux disease without esophagitis - Gastro-esophageal reflux disease without esophagitis - Old myocardial infarction - Contact with and (suspected) exposure to COVID-19 - Other specified postprocedural states - Anemia, unspecified - Contact with and (suspected) exposure to COVID-19 - Unspecified intestinal obstruction, unspecified as to partial versus complete obstruction - 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 - Nicotine dependence, cigarettes, uncomplicated - Presence of coronary angioplasty implant and graft - 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 - Atherosclerotic heart disease of [place] coronary artery without angina pectoris - Benign prostatic hyperplasia without lower urinary tract symptoms - Hyperlipidemia, unspecified - Essential (primary) hypertension 01/04/2022 09:12 [facility] OR TYPE: Medical Surgical COMPLAINT: - ENTERITIS,GI BLEED DIAGNOSES: - Contact with and (suspected) exposure to COVID-19 - Hyperlipidemia, unspecified - Atherosclerotic heart disease of [place] coronary artery without angina pectoris - Other retirement (current) drug therapy - Elevated white blood cell count, unspecified - Benign prostatic hyperplasia without lower urinary tract symptoms - Adverse effect of glucocorticoids and synthetic analogues, initial encounter - Personal history of nicotine dependence - Gastro-esophageal reflux disease without esophagitis - Essential (primary) hypertension - Other specified postprocedural states - Other fecal abnormalities - Old myocardial infarction - 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
[2022-09-24] MEDS ORDERED: PREDNISONE20 MG PO (18:10)
[2022-09-24] MEDS ORDERED: ONDANSETRON ODT8 MG PO (21:46)
[2022-09-24] MEDS ORDERED: BUTALB-ACETAMI1 EACH PO (21:46)
== END 2022-09-24 22:18 | disposition home or self-care (01) ==
LOC: ED 17:57
DX: R51.9 Headache, unspecified (principal); I25.2 Old myocardial infarction; Z87.891 Personal history of nicotine dependence; Z88.5 Allergy status to narcotic agent; Z79.899 Other long term (current) drug therapy; Z79.02 Long term (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 of 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; Z20.822 Contact with and (suspected) exposure to COVID-19
CPT/HCPCS: 36415; 36600; 71250; 80053; 82803; 85025; 85610; 87502; 96374; 96375; 99284-25; A9270; J1100; J2405; J2550; J3030; J7121; U0003